=== PATIENT | male | born 1945 | race Caucasian/White ===

== ENCOUNTER 2016-10-28 19:21 | Emergency (ER) | payer MEDICARE ==
[2016-10-28] MEDS ORDERED: SODIUM CHLORIDE 0.9% 1,000 ML IV STA (20:06)
[2016-10-28] MEDS ORDERED: RX INFO: IV CONTRAST WAS GIVEN 1 EACH MISC MISCELLANE PRN (20:21)
--- NOTE | 2016-10-28 20:33 | ED ---
Abdominal Pain HPI - General Chief Complaint: Abdominal Pain Stated Complaint: Abd Pain Time Seen by Provider: 10/28/16 20:06 Source: patient, RN notes reviewed Mode of arrival: ambulatory Limitations: no limitations - History of Present Illness Initial Comments: 70-year-old male presents emergency Department with chief complaint abdominal pain. Patient states this started last night with some heartburn type symptoms but states that moved into his lower to mid abdomen. He states his just pain at this time. Patient also states she's had some diarrhea which is been slightly loose and watery. Denies any melena or hematochezia. Denies any mucus. Patient has no history of abdominal issues including gastric intestinal disease. Patient has had no abdominal surgeries. Patient denies chest pain, shortness breath, fever, chills. He states that eating seems to make things worse at this time. Patient denies any sick contacts. - Related Data Allergies Allergy/AdvReac Type Severity Reaction Status Date / Time No Known Allergies Allergy Verified 10/28/16 20:04 Review of Systems ROS Statement: Those systems with pertinent positive or pertinent negative responses have been documented in the HPI. ROS Other: All systems not noted in ROS Statement are negative. Past Medical History Past Medical History: GERD/Reflux, Hyperlipidemia, Hypertension, Myocardial Infarction ([place]) History of Any Multi-Drug Resistant Organisms: None Reported Past Surgical History: Heart Catheterization With Stent Past Psychological History: No Psychological Hx Reported Smoking Status: Never smoker Past Alcohol Use History: Rare Past Drug Use History: None Reported General Exam Limitations: no limitations General appearance: alert, in no apparent distress Head exam: Present: atraumatic, normocephalic, normal inspection Eye exam: Present: normal appearance, PERRL, EOMI. Absent: scleral icterus, conjunctival injection, periorbital swelling Respiratory exam: Present: normal lung sounds bilaterally. Absent: respiratory distress, wheezes, rales, rhonchi, stridor Cardiovascular Exam: Present: regular rate, normal rhythm, normal heart sounds. Absent: systolic murmur, diastolic murmur, rubs, gallop, clicks GI/Abdominal exam: Present: soft, tenderness (Mild to moderate midabdominal, periumbilical tenderness), normal bowel sounds. Absent: distended, guarding, rebound, rigid Back exam: Absent: CVA tenderness (R), CVA tenderness (L) Neurological exam: Present: alert, oriented X3, CN II-XII intact Skin exam: Present: warm, dry, intact, normal color. Absent: rash Course Vital Signs 10/28/16 20:01 Temperature 99.3 F Pulse Rate 104 H Respiratory 18 Rate Blood Pressure 121/69 O2 Sat by Pulse 98 Oximetry Medical Decision Making - Medical Decision Making 70-year-old male present emergency department for abdominal discomfort, diarrhea. Patient's labwork all within normal limits. Patient CT does show findings compatible with enteritis. Patient will be discharged at this time with close follow-up return parameters were discussed. - Lab Data Result diagrams: 10/28/16 20:20 10/28/16 20:20 Lab Results 10/28/16 10/28/16 10/28/16 Range/Units 20:20 20:20 20:20 WBC 8.6 (3.8-10.6) k/uL RBC 5.01 (4.30-5.90) m/uL Hgb 15.3 (13.0-17.5) gm/dL Hct 44.8 (39.0-53.0) % MCV 89.5 (80.0-100.0) fL MCH 30.6 (25.0-35.0) pg MCHC 34.2 (31.0-37.0) g/dL RDW 13.8 (11.5-15.5) % Plt Count 270 (150-450) k/uL Neutrophils % 80 % Lymphocytes % 10 % Monocytes % 5 % Eosinophils % 3 % Basophils % 0 % Neutrophils # 6.9 (1.3-7.7) k/uL Lymphocytes # 0.9 L (1.0-4.8) k/uL Monocytes # 0.5 (0-1.0) k/uL Eosinophils # 0.3 (0-0.7) k/uL Basophils # 0.0 (0-0.2) k/uL Sodium 143 (137-145) mmol/L Potassium 3.9 (3.5-5.1) mmol/L Chloride 111 H (98-107) mmol/L Carbon Dioxide 22 (22-30) mmol/L Anion Gap 10 mmol/L BUN 23 H (9-20) mg/dL Creatinine 0.89 (0.66-1.25) mg/dL Est GFR (MDRD) Af Amer >60 (>60 ml/min/1.73 sqM) Est GFR (MDRD) Non-Af >60 (>60 ml/min/1.73 sqM) Glucose 133 H (74-99) mg/dL Plasma Lactic Acid Popeye 1.0 (0.7-2.0) mmol/L Calcium 9.4 (8.4-10.2) mg/dL Total Bilirubin 0.9 (0.2-1.3) mg/dL AST 26 (17-59) U/L ALT 42 (21-72) U/L Alkaline Phosphatase 123 (38-126) U/L Total Protein 7.0 (6.3-8.2) g/dL Albumin 4.2 (3.5-5.0) g/dL Amylase 90 (30-110) U/L Lipase 232 (23-300) U/L Disposition Clinical Impression: Enteritis Disposition: HOME SELF-CARE Condition: Stable Instructions: Enteritis (ED) Additional Instructions: Please return to the Emergency Department if symptoms worsen or any other concerns. Referrals: Oleg Jason MD [Primary Care Provider] - 1-2 days Time of Disposition: 21:17
[2016-10-28 20:38] LABS: Basophils % (A) 0 %; CH 30.2; Eosinophils # (A) 0.3 k/uL (0-0.7); Eosinophils % (A) 3 %; HCT 44.8 % (39.0-53.0); HDW 2.67; HGB 15.3 gm/dL (13.0-17.5); Luc # (Auto) 0.15; Luc % (Auto) 2; Lymphocytes # (A) 0.9 k/uL (1.0-4.8); Lymphocytes % (A) 10 %; MCH 30.6 pg (25.0-35.0); MCHC 34.2 g/dL (31.0-37.0); MCV 89.5 fL (80.0-100.0); Mean Platelet Volume 7.3; Monocytes # (A) 0.5 k/uL (0-1.0); Monocytes % (A) 5 %; Neutrophils # (A) 6.9 k/uL (1.3-7.7); Neutrophils % (A) 80 %; RBC 5.01 m/uL (4.30-5.90); RDW 13.8 % (11.5-15.5); WBC 8.6 k/uL (3.8-10.6); WBC (Perox) 8.39
[2016-10-28 20:46] LABS: ALT 42 U/L (21-72); AST 26 U/L (17-59); Alkaline Phosphatase 123 U/L (38-126); Amylase 90 U/L (30-110); Anion Gap 10 mmol/L; Blood Urea Nitrogen 23 mg/dL (9-20); Calcium 9.4 mg/dL (8.4-10.2); Carbon Dioxide 22 mmol/L (22-30); Chloride 111 mmol/L (98-107); Glucose 133 mg/dL (74-99); Non-African American GFR(MDRD) >60 (>60 ml/min/1.73 sqM); Potassium 3.9 mmol/L (3.5-5.1); Sodium 143 mmol/L (137-145); Total Bilirubin 0.9 mg/dL (0.2-1.3)
--- NOTE | 2016-10-28 21:15 | CT ---
EXAMINATION TYPE: CT abdomen pelvis w con DATE OF EXAM: 10/28/2016 COMPARISON: NONE HISTORY: Pelvic pain and diarrhea since last night. CT DLP: 371.60 mGycm Automated exposure control for dose reduction was used. TECHNIQUE: Helical acquisition of images from the lung bases through the pelvis have been completed. CONTRAST: Performed without Oral Contrast and with IV Contrast, patient injected with 100 mL of Omnipaque 300. FINDINGS: LUNG BASES: No significant abnormality is appreciated. AORTA: Small limited dissection present axial image 34 infrarenal abdominal aorta, atheromatous dixon ges are present LIVER/GB: No significant abnormality is appreciated. PANCREAS: No significant abnormality is seen. SPLEEN: No significant abnormality is seen. ADRENALS: No significant abnormality is seen. KIDNEYS: No significant abnormality is seen. REPRODUCTIVE ORGANS: No significant abnormality is seen BOWEL: Fluid-filled loops of small bowel are present. No evident bowel obstruction. Hyperdense mater ial within the stomach and proximal small bowel likely related to radiodense medication. FREE AIR: No Free Air visible. ASCITES: None visible. PELVIC ADENOPATHY: None visualized. RETROPERITONEAL ADENOPATHY: No Retroperitoneal Adenopathy visible. URINARY BLADDER: No significant abnormality is seen. OSSEOUS STRUCTURES: Degenerative disc changes in the visualized spine. IMPRESSION: FINDINGS COMPATIBLE WITH ENTERITIS.
[2016-10-28 21:25] VITALS: BP 129/76; PULSE 94; RESP 16; TEMP 98.1
== END 2016-10-28 21:34 | disposition home or self-care (01) ==
LOC: EC 19:21
DX: K52.9 Noninfective gastroenteritis and colitis, unspecified (principal); K21.9 Gastro-esophageal reflux disease without esophagitis
CPT/HCPCS: 36415; 80053; 82150; 83605; 83690; 85025; 74177; 99284; 96360; Q9967

== ENCOUNTER → 2016-12-11 | Outpatient (CLI) | payer MEDICARE ==
[2016-12-11 13:44] LABS: Basophils % (A) 1 %; CH 29.9; CHCM 33.4; Eosinophils # (A) 0.1 k/uL (0-0.7); Eosinophils % (A) 1 %; HCT 39.5 % (39.0-53.0); HDW 2.58; HGB 13.3 gm/dL (13.0-17.5); Luc # (Auto) 0.13; Luc % (Auto) 3; Lymphocytes # (A) 1.1 k/uL (1.0-4.8); Lymphocytes % (A) 23 %; MCH 30.3 pg (25.0-35.0); MCHC 33.7 g/dL (31.0-37.0); MCV 89.9 fL (80.0-100.0); Mean Platelet Volume 7.3; Monocytes # (A) 0.3 k/uL (0-1.0); Monocytes % (A) 5 %; Neutrophils # (A) 3.3 k/uL (1.3-7.7); Neutrophils % (A) 67 %; RBC 4.39 m/uL (4.30-5.90); RDW 13.5 % (11.5-15.5); WBC 4.9 k/uL (3.8-10.6); WBC (Perox) 4.96
[2016-12-11 14:02] LABS: ALT 46 U/L (21-72); AST 30 U/L (17-59); Alkaline Phosphatase 103 U/L (38-126); Blood Urea Nitrogen 15 mg/dL (9-20); Calcium 9.1 mg/dL (8.4-10.2); Carbon Dioxide 25 mmol/L (22-30); Non-African American GFR(MDRD) >60 (>60 ml/min/1.73 sqM); Total Bilirubin 0.6 mg/dL (0.2-1.3)
[2016-12-11 14:30] LABS: Anion Gap 12 mmol/L; Chloride 107 mmol/L (98-107); Glucose 97 mg/dL (74-99); Potassium 3.8 mmol/L (3.5-5.1); Sodium 144 mmol/L (137-145); Total Protein 6.1 g/dL (6.3-8.2)
--- NOTE | 2016-12-11 14:32 | XR ---
EXAMINATION TYPE: XR chest 2V DATE OF EXAM: 12/11/2016 COMPARISON: NONE HISTORY: Hypertension, history of myocardial infarction TECHNIQUE: Frontal and lateral views of the chest are obtained. FINDINGS: Lung volumes are prominent suggesting underlying COPD. Patient is rotated. Heart is small. Pulmonary vascularity and clara within normal limits. No pneumonia, pneumothorax, or pleural effusion . IMPRESSION: No acute cardiopulmonary process.
== END | disposition home or self-care (01) ==
LOC: LABWHC1 13:09
PROVIDERS: ATTEND Internal Medicine
DX: I10 Essential (primary) hypertension (principal); R63.4 Abnormal weight loss
CPT/HCPCS: 36415; 71020; 80053; 85025

== ENCOUNTER → 2016-12-25 | Outpatient (CLI) | payer MEDICARE ==
--- NOTE | 2016-12-25 11:43 | FL ---
EXAMINATION TYPE: FL UGI air w esoph w sm bowel DATE OF EXAM: 12/25/2016 CLINICAL HISTORY: Weight loss and GERD per order. Epigastric pain and diarrhea over last few months p er patient. TECHNIQUE: A double contrast UGI study is performed with small bowel follow through. A total of 1 mi nute 26 seconds of fluoroscopic time was utilized during procedure. COMPARISON: CT abdomen and pelvis October 28, 2016. FINDINGS: Winch Driver image of the abdomen shows no gross abnormality. There is overall nonobstructive bow el gas pattern. The esophagus shows normal motility and emptying into the stomach. No evidence of hiatal hernia or s tricture noted. The stomach shows normal distensibility, peristalsis, and mucosal folds. No evidence of any mass or ulcer disease. Occasional episode of esophageal reflux was seen during real time performance of this study. The duodenal bulb and sweep are unremarkable. The small bowel study shows normal transit to the colon in less than 120 minutes. There is normal mu cosal fold pattern throughout the small bowel. There is no evidence of any stricture or filling defe ct noted. The terminal ileum was difficult to spot due to overlying contrast-filled bowel. IMPRESSION: Occasional gastroesophageal reflux otherwise no significant finding is seen to account fo r patient's symptoms
== END | disposition home or self-care (01) ==
LOC: RADFLMAIN 08:22
PROVIDERS: ATTEND Internal Medicine
DX: K21.9 Gastro-esophageal reflux disease without esophagitis (principal); R63.4 Abnormal weight loss
CPT/HCPCS: 74249

== ENCOUNTER 2019-08-03 21:32 | Inpatient (IN) | payer MEDICARE ==
[2019-08-03] MEDS ORDERED: SODIUM CHLORIDE 0.9% 500 ML 500 ML IV STA (21:38)
--- NOTE | 2019-08-03 21:42 | ED ---
General Adult HPI - General Chief complaint: Chest Pain Stated complaint: Abd pain Time Seen by Provider: 08/03/19 21:38 Source: patient Mode of arrival: ambulatory Limitations: no limitations - History of Present Illness Initial comments: Kye is a 73-year-old gentleman presents the emergency department today for evaluation of severe epigastric abdominal pain. Patient reports that pain began earlier in the day, progressively worsened, he tried some bgbh-clb-hnbgyxk upset stomach relief with no improvement. Pain is located in the epigastrium radiates to the back. There is no associated chest pain palpitations or shortness of breath though he does report taking deep breaths movement or palpation of the abdomen worsens the pain. He's been no relieving factors to the pain. He is never expressed pain like this in the past. He has no history of gallbladder pathology or pancreatitis that he is aware of. No recent fevers chills or vomiting. He did have some nausea associated with the pain but no vomiting. No change in bowel or bladder habits. Patient denies any alcohol use recently, he did have communion when this morning but no other significant alcohol intake. He denies any new medications. Denies any abdominal trauma. - Related Data Previous Rx's Medication Instructions Recorded Dicyclomine [Bentyl] 20 mg PO TID #30 tablet 10/28/16 Allergies Allergy/AdvReac Type Severity Reaction Status Date / Time No Known Allergies Allergy Verified 08/03/19 21:38 Review of Systems ROS Statement: Those systems with pertinent positive or pertinent negative responses have been documented in the HPI. ROS Other: All systems not noted in ROS Statement are negative. Past Medical History Past Medical History: GERD/Reflux, Hyperlipidemia, Hypertension, Myocardial Infarction ([place]) History of Any Multi-Drug Resistant Organisms: None Reported Past Surgical History: Heart Catheterization With Stent Past Psychological History: No Psychological Hx Reported Smoking Status: Never smoker Past Alcohol Use History: Rare Past Drug Use History: None Reported General Exam - General Exam Comments Initial Comments: Physical Exam GENERAL: Patient is well-developed and well-nourished. Patient is nontoxic and well- hydrated and is in no distress. HENT: Normocephalic, Atraumatic. EYES: PERRL, EOMI PULMONARY: Unlabored respirations. No audible rales rhonchi or wheezing was noted. CARDIOVASCULAR: There is a regular rate and rhythm without any murmurs gallops or rubs. ABDOMEN: Tenderness to palpation in the epigastrium SKIN: Skin is clear with no lesions or rashes and otherwise unremarkable. : Deferred NEUROLOGIC: Patient is alert and oriented x3. Moving all extremities spontaneously MUSCULOSKELETAL: Normal extremities with adequate strength and full range of motion. No lower extremity swelling or edema. No calf tenderness. PSYCHIATRIC: Normal psychiatric evaluation. Limitations: no limitations Course Vital Signs 08/03/19 08/03/19 08/03/19 21:34 21:49 22:00 Temperature 98.1 F Pulse Rate 69 97 98 Respiratory 16 14 14 Rate Blood Pressure 157/71 149/83 O2 Sat by Pulse 99 100 99 Oximetry 08/04/19 00:31 Temperature 98.1 F Pulse Rate 89 Respiratory 20 Rate Blood Pressure 129/66 O2 Sat by Pulse 97 Oximetry EKG Findings - EKG Comments: EKG Findings:: EKG was obtained due to patient's age and cardiac history, EKG was obtained at 2145, rate is 90 rhythm is sinus with PACs, normal axis, normal intervals, OK 164, cures 80, QTc is [address] elevations or depressions or evidence of ischemia or infarction. Medical Decision Making - Medical Decision Making Patient was seen and evaluated history is obtained from patient History and physical exam concerning for epigastric abdominal pain elderly gentleman cardiac history Labs and imaging consistent with acute pancreatitis Imaging with no acute findings on CT Results were discussed with admitting physician Dr. Pearce agrees with plan for admission for IV fluid resuscitation pain management She had only minimal improvement in his pain with morphine, Dilaudid was ordered for analgesia for the patient to tolerate and liver ultrasound Patient's pain improved significantly after Dilaudid Patient was admitted to the floor in stable condition - Lab Data Result diagrams: 08/03/19 21:48 08/03/19 21:48 Lab Results 08/03/19 08/03/19 08/03/19 Range/Units 21:48 21:48 21:48 WBC 10.4 (3.8-10.6) k/uL RBC 4.82 (4.30-5.90) m/uL Hgb 14.4 (13.0-17.5) gm/dL Hct 43.3 (39.0-53.0) % MCV 89.8 (80.0-100.0) fL MCH 29.8 (25.0-35.0) pg MCHC 33.2 (31.0-37.0) g/dL RDW 13.6 (11.5-15.5) % Plt Count 189 (150-450) k/uL Neutrophils % 79 % Lymphocytes % 13 % Monocytes % 4 % Eosinophils % 1 % Basophils % 0 % Neutrophils # 8.3 H (1.3-7.7) k/uL Lymphocytes # 1.4 (1.0-4.8) k/uL Monocytes # 0.5 (0-1.0) k/uL Eosinophils # 0.2 (0-0.7) k/uL Basophils # 0.0 (0-0.2) k/uL PT 10.0 (9.0-12.0) sec INR 1.0 (<1.2) APTT 23.3 (22.0-30.0) sec Sodium 142 (137-145) mmol/L Potassium 3.7 (3.5-5.1) mmol/L Chloride 108 H (98-107) mmol/L Carbon Dioxide 25 (22-30) mmol/L Anion Gap 9 mmol/L BUN 21 H (9-20) mg/dL Creatinine 0.94 (0.66-1.25) mg/dL Est GFR (CKD-EPI)AfAm >90 (>60 ml/min/1.73 sqM) Est GFR (CKD-EPI)NonAf 81 (>60 ml/min/1.73 sqM) Glucose 151 H (74-99) mg/dL Calcium 9.2 (8.4-10.2) mg/dL Magnesium 2.3 (1.6-2.3) mg/dL Total Bilirubin 0.4 (0.2-1.3) mg/dL AST 41 (17-59) U/L ALT 38 (4-49) U/L Alkaline Phosphatase 110 (38-126) U/L Troponin I (0.000-0.034) ng/mL NT-Pro-B Natriuret Pep pg/mL Total Protein 7.3 (6.3-8.2) g/dL Albumin 4.5 (3.5-5.0) g/dL Amylase 4734 H* (30-110) U/L Lipase >49797 H (23-300) U/L Urine Color Urine Appearance (Clear) Urine pH (5.0-8.0) Ur Specific [place] (1.001-1.035) Urine Protein (Negative) Urine Glucose (UA) (Negative) Urine Ketones (Negative) Urine Blood (Negative) Urine Nitrite (Negative) Urine Bilirubin (Negative) Urine Urobilinogen (<2.0) mg/dL Ur Leukocyte Esterase (Negative) 08/03/19 08/03/19 08/03/19 Range/Units 21:48 21:48 22:20 WBC (3.8-10.6) k/uL RBC (4.30-5.90) m/uL Hgb (13.0-17.5) gm/dL Hct (39.0-53.0) % MCV (80.0-100.0) fL MCH (25.0-35.0) pg MCHC (31.0-37.0) g/dL RDW (11.5-15.5) % Plt Count (150-450) k/uL Neutrophils % % Lymphocytes % % Monocytes % % Eosinophils % % Basophils % % Neutrophils # (1.3-7.7) k/uL Lymphocytes # (1.0-4.8) k/uL Monocytes # (0-1.0) k/uL Eosinophils # (0-0.7) k/uL Basophils # (0-0.2) k/uL PT (9.0-12.0) sec INR (<1.2) APTT (22.0-30.0) sec Sodium (137-145) mmol/L Potassium (3.5-5.1) mmol/L Chloride (98-107) mmol/L Carbon Dioxide (22-30) mmol/L Anion Gap mmol/L BUN (9-20) mg/dL Creatinine (0.66-1.25) mg/dL Est GFR (CKD-EPI)AfAm (>60 ml/min/1.73 sqM) Est GFR (CKD-EPI)NonAf (>60 ml/min/1.73 sqM) Glucose (74-99) mg/dL Calcium (8.4-10.2) mg/dL Magnesium (1.6-2.3) mg/dL Total Bilirubin (0.2-1.3) mg/dL AST (17-59) U/L ALT (4-49) U/L Alkaline Phosphatase (38-126) U/L Troponin I <0.012 (0.000-0.034) ng/mL NT-Pro-B Natriuret Pep 290 pg/mL Total Protein (6.3-8.2) g/dL Albumin (3.5-5.0) g/dL Amylase (30-110) U/L Lipase (23-300) U/L Urine Color Light Yellow Urine Appearance Clear (Clear) Urine pH 7.5 (5.0-8.0) Ur Specific [place] 1.019 (1.001-1.035) Urine Protein Trace H (Negative) Urine Glucose (UA) Negative (Negative) Urine Ketones Negative (Negative) Urine Blood Negative (Negative) Urine Nitrite Negative (Negative) Urine Bilirubin Negative (Negative) Urine Urobilinogen 2.0 (<2.0) mg/dL Ur Leukocyte Esterase Negative (Negative) Disposition Clinical Impression: Acute pancreatitis Disposition: ADMITTED IP TO THIS [facility] Condition: Serious Is patient prescribed a controlled substance at d/c from ED?: No
[2019-08-03 21:57] LABS: Basophils % (A) 0 %; Eosinophils # (A) 0.2 k/uL (0-0.7); Eosinophils % (A) 1 %; HCT 43.3 % (39.0-53.0); HGB 14.4 gm/dL (13.0-17.5); Lymphocytes # (A) 1.4 k/uL (1.0-4.8); Lymphocytes % (A) 13 %; MCH 29.8 pg (25.0-35.0); MCHC 33.2 g/dL (31.0-37.0); MCV 89.8 fL (80.0-100.0); Mean Platelet Volume 8.1; Monocytes # (A) 0.5 k/uL (0-1.0); Monocytes % (A) 4 %; Neutrophils # (A) 8.3 k/uL (1.3-7.7); Neutrophils % (A) 79 %; Platelet Count 189 k/uL (150-450); RBC 4.82 m/uL (4.30-5.90); RDW 13.6 % (11.5-15.5); WBC 10.4 k/uL (3.8-10.6)
[2019-08-03 22:06] LABS: Partial Thromboplastin Time 23.3 sec (22.0-30.0)
[2019-08-03 22:09] LABS: ALT 38 U/L (4-49); AST 41 U/L (17-59); African American GFR (CKD) >90 (>60 ml/min/1.73 sqM); Albumin 4.5 g/dL (3.5-5.0); Alkaline Phosphatase 110 U/L (38-126); Anion Gap 9 mmol/L; Blood Urea Nitrogen 21 mg/dL (9-20); Calcium 9.2 mg/dL (8.4-10.2); Carbon Dioxide 25 mmol/L (22-30); Chloride 108 mmol/L (98-107); Glucose 151 mg/dL (74-99); Magnesium 2.3 mg/dL (1.6-2.3); Non-African American GFR(CKD) 81 (>60 ml/min/1.73 sqM); Potassium 3.7 mmol/L (3.5-5.1); Sodium 142 mmol/L (137-145); Total Bilirubin 0.4 mg/dL (0.2-1.3); Total Protein 7.3 g/dL (6.3-8.2)
[2019-08-03] MEDS ORDERED: MORPHINE SULFATE 4 MG/ML SYRINGE IVP STA (22:09)
[2019-08-03] MEDS ORDERED: ONDANSETRON 4 MG/2 ML VIAL IVP STA (22:09)
--- NOTE | 2019-08-03 22:09 | XR ---
EXAMINATION TYPE: XR chest 2V DATE OF EXAM: 08/03/2019 COMPARISON: 12/11/2016 HISTORY: Hypertension TECHNIQUE: FINDINGS: Heart is normal. Lungs are clear. Costophrenic angles are clear. Bony thorax is intact. The re are chest leads. IMPRESSION: No active cardiopulmonary disease. Normal heart. No change.
[2019-08-03 22:27] LABS: Appearance,Urine Clear (Clear); Bilirubin,Urine Negative (Negative); Blood,Urine Negative (Negative); Color,Urine Light Yellow; Glucose,Urine (UA) Negative (Negative); Ketones,Urine Negative (Negative); Leukocyte Esterase,Urine Negative (Negative); Nitrite,Urine Negative (Negative); PH, Urine 7.5 (5.0-8.0); Protein,Urine Trace (Negative); Specific Gravity,Urine 1.019 (1.001-1.035)
[2019-08-03 22:50] LABS: Amylase 4734 U/L (30-110)
--- NOTE | 2019-08-03 23:36 | CT ---
EXAMINATION TYPE: CT abdomen pelvis w con DATE OF EXAM: 08/03/2019 COMPARISON: 10/28/2016 HISTORY: Epigastric pain CT DLP: 682.40 mGycm Automated exposure control for dose reduction was used. CONTRAST: Performed with IV Contrast, patient injected with 100 mL of Isovue 300. Multiple axial sections were obtained from the diaphragm to the floor the pelvis with intravenous con trast Isovue 300 mL. Lung bases are clear of consolidation. There is mild subsegmental atelectasis at the lung bases. Hear t size is normal. There is no pericardial effusion. Liver spleen stomach pancreas gallbladder appear normal. The bile ducts are not dilated. There is no adrenal mass. Kidneys show satisfactory contrast opacification. There is no hydronephrosis. Ureters are not dilated. I see no sign of thickened append ix. Small bowel appears normal. Bladder distends smoothly. There is no inguinal hernia. There is no f ree fluid in the pelvis. There is no mesenteric edema. There is no ascites or free air. There is no bowel obstruction. Lumbar spine is intact. There is degenerative disc space narrowing. There is no compression fracture. IMPRESSION: No sign of acute abdomen and pelvis. There is clearing of the distended loops of small bowel compared to last exam. Appendix not seen. No sign of thickened appendix.
[2019-08-04] MEDS ORDERED: ONDANSETRON 4 MG/2 ML VIAL IVP PRN (00:05)
[2019-08-04] MEDS ORDERED: MORPHINE SULFATE 4 MG/ML SYRINGE IVP PRN ×2 (00:05→01:23)
[2019-08-04] MEDS ORDERED: NALOXONE 0.4 MG/ML 1 ML VIAL IV PRN (00:09)
[2019-08-04] MEDS ORDERED: SODIUM CHLORIDE 0.9% 1,000 ML IV SCH (00:15)
[2019-08-04] MEDS ORDERED: HYDROmorphone 1 MG/ML 1 ML SYRINGE IVP STA (00:16)
[2019-08-04] MEDS: LACTATED RINGERS 1,000 ML IV ONE ×2 (00:26→21:58)
[2019-08-04] MEDS: HEPARIN SODIUM,PORCINE 5,000 UNIT/ML 1 ML VIAL SQ SCH ×4 (00:28→23:35)
[2019-08-04] MEDS: LACTATED RINGERS 1,000 ML IV SCH ×8 (00:56→22:32)
--- NOTE | 2019-08-04 00:58 | US ---
EXAMINATION TYPE: US liver DATE OF EXAM: 08/04/2019 COMPARISON: CT CLINICAL HISTORY: acute pancreatitis. EXAM MEASUREMENTS: Liver Length: 14.6 cm Gallbladder Wall: 0.3 cm CBD: 0.3 cm Right Kidney: 9.0 x 3.8 x 5.0 cm Extensive overlying bowel gas. Technically difficult study. Pancreas: Obscured by bowel gas Liver: wnl Gallbladder: wnl, limited visualization due to overlying bowel gas Evidence for sonographic Ann's sign: no CBD: limited views, appears wnl Right Kidney: No hydronephrosis or masses seen, inferior pole somewhat obscured by overlying bowel g as IMPRESSION: Pancreas not seen due to bowel gas. No dilated ducts. No free fluid. No focal liver defec t.
--- NOTE | 2019-08-04 01:23 | P.HPIM ---
History of Present Illness H&P Date: 08/04/19 Chief Complaint: Epigastric abdominal pain 73-year-old male with hypertension, hyperlipidemia Patient comes in due to epigastric abdominal pain sudden onset severe radiating to the back rated as 10 out of 10 in severity sharp pain associated with nausea no vomiting worse with movement and deep breathing. Patient never experienced anything like this denies any history of pancreatitis denies any recent traveling denies any symptoms suggestive of gastroenteritis. Denies any history of ulcers. Patient denies any changes in his medications. Denies any unsanitary food or drink. He denies any heavy alcohol intake, however this morning he had glass of wine at [facility] during communion. Since then his symptoms has started. Patient tried some kpxx-lev-fkfiqmn meds with no much relief. Patient denies any GI bleeding Upon evaluation in the ED, he was found to have acute pancreatitis. CT of the abdomen showed no acute process Review of Systems Pertinent positives as noted in HPI. All other systems were reviewed and are negative Past Medical History Past Medical History: GERD/Reflux, Hyperlipidemia, Hypertension, Myocardial Infarction ([place]) History of Any Multi-Drug Resistant Organisms: None Reported Past Surgical History: Heart Catheterization With Stent Past Psychological History: No Psychological Hx Reported Smoking Status: Never smoker Past Alcohol Use History: Rare Past Drug Use History: None Reported Medications and Allergies Home Medications Medication Instructions Recorded Confirmed Type Dicyclomine [Bentyl] 20 mg PO TID #30 tablet 10/28/16 Rx Allergies Allergy/AdvReac Type Severity Reaction Status Date / Time No Known Allergies Allergy Verified 08/03/19 21:38 Physical Exam Vitals: Vital Signs Temp Pulse Resp BP Pulse Ox 08/04/19 00:31 98.1 F 89 20 129/66 97 08/03/19 22:00 98 14 149/83 99 08/03/19 21:49 97 14 100 08/03/19 21:34 98.1 F 69 16 157/71 99 Intake and Output 08/03/19 08/03/19 08/04/19 14:59 22:59 06:59 Other: Weight 63.503 kg Constitutional: No acute distress, conversant, pleasant Eyes: Anicteric sclerae, moist conjunctiva, no lid-lag Pupils equal round reactive to light ENMT: NC/AT Oropharynx clear, no erythema, exudates Neck: Supple, FROM, no masses, or JVD No carotid bruits No thyromegaly Lungs: Clear to auscultation Clear to percussion Normal respiratory effort, no accessory muscle use Cardiovascular: Heart regular in rate and rhythm, No murmurs, gallops, or rubs No peripheral edema Abdominal: Soft diffuse tenderness to deep palpation , no guarding, rebound or rigidity Abdomen moving with respiration Normoactive bowel sounds No hepatomegaly, No splenomegaly No palpable mass No abdominal wall hernia noted Skin: Normal temperature, tone, texture, turgor No induration No subcutaneous nodules No rash, lesions No ulcers Extremities: No digital cyanosis No clubbing Pedal pulses intact and symmetrical Radial pulses intact and symmetrical No calf tenderness Psychiatric: Alert and oriented to person, place and time Appropriate affect fair judgement Neuro Muscles Strength 5/5 in all 4 extremities Sensation to light touch grossly present throughout Cranial nerves II-XII grossly intact No focal sensory deficits Lymphatics: no palpable cervical or supraclavicular , or inguinal lymph nodes Results CBC & Chem 7: 08/03/19 21:48 08/03/19 21:48 Labs: Abnormal Lab Results - Last 24 Hours (Table) 08/03/19 08/03/19 08/03/19 Range/Units 21:48 21:48 22:20 Neutrophils # 8.3 H (1.3-7.7) k/uL Chloride 108 H (98-107) mmol/L BUN 21 H (9-20) mg/dL Glucose 151 H (74-99) mg/dL Amylase 4734 H* (30-110) U/L Lipase >36640 H (23-300) U/L Urine Protein Trace H (Negative) Assessment and Plan Assessment: 73 year old male with hypertension , hyperlipidemia, CAD , admitted for acute pancreatitis, unknown unnderlying cause, as inpatient with anticipated length of stay > 2 midnights Plan: acute pancreatitis pain control aggressive IVF hydration CT abd no acute process LIver US check TG level check IgG 4 symptomatic support follow up cmp and CBC DVT PPX heparin sc tid chronic conditions hypertension hyperlipidemia CAD CODE STATUS:full code Discussed with: Patient, ER Anticipated length of stay > than [address]: home A total of 60 minutes was spent on the care of this complex patient more than 50% of the time was spent in counseling and care coordination.
[2019-08-04 10:35] LABS: Basophils % (A) 0 %; Eosinophils # (A) 0.1 k/uL (0-0.7); Eosinophils % (A) 1 %; HCT 39.6 % (39.0-53.0); HGB 12.9 gm/dL (13.0-17.5); Lymphocytes # (A) 0.9 k/uL (1.0-4.8); Lymphocytes % (A) 14 %; MCH 29.3 pg (25.0-35.0); MCHC 32.6 g/dL (31.0-37.0); Mean Platelet Volume 8.3; Monocytes # (A) 0.3 k/uL (0-1.0); Monocytes % (A) 4 %; Neutrophils # (A) 5.2 k/uL (1.3-7.7); Neutrophils % (A) 80 %; Platelet Count 160 k/uL (150-450); RDW 13.6 % (11.5-15.5); WBC 6.5 k/uL (3.8-10.6)
[2019-08-04 10:44] LABS: ALT 28 U/L (4-49); AST 29 U/L (17-59); African American GFR (CKD) >90 (>60 ml/min/1.73 sqM); Albumin 3.4 g/dL (3.5-5.0); Alkaline Phosphatase 85 U/L (38-126); Anion Gap 6 mmol/L; Blood Urea Nitrogen 15 mg/dL (9-20); Carbon Dioxide 24 mmol/L (22-30); Chloride 108 mmol/L (98-107); Glucose 107 mg/dL (74-99); Non-African American GFR(CKD) >90 (>60 ml/min/1.73 sqM); Sodium 138 mmol/L (137-145); Total Bilirubin 0.5 mg/dL (0.2-1.3); Total Protein 5.9 g/dL (6.3-8.2)
[2019-08-04 11:29] LABS: IgG Subclass 4 47.9 mg/dL (3.0-175.0)
--- NOTE | 2019-08-04 12:39 | P.PN ---
Progress Note - Text Progress Note Date: 08/04/19 Patient here for pancreatitis of unknown etiology. Lipase has been trending down. Patient reports improvement in current symptoms. Triglycerides slightly elevated at 179. CT abdomen and pelvis unremarkable. Liver ultrasound shows no dilated ducts. We'll continue normal saline at 150 mL/h. Zofran for nausea or vomiting. Pain control with morphine every 2 hours as needed. Start clear liquid diet and advance. He is pending clinical improvement. Likely DC in 2-3 days.
[2019-08-04] MEDS: TOPIRAMATE 25 MG TAB PO SCH (20:29)
[2019-08-04] MEDS: METOPROLOL TARTRATE 25 MG TAB PO SCH (20:29)
[2019-08-04] MEDS: ATORVASTATIN 20 MG TAB PO SCH (20:29)
[2019-08-04] MEDS: FAMOTIDINE 20 MG TAB PO SCH (20:29)
[2019-08-05] MEDS: LACTATED RINGERS 1,000 ML IV SCH ×3 (05:51→22:51)
[2019-08-05 08:08] LABS: Basophils % (A) 0 %; Eosinophils # (A) 0.1 k/uL (0-0.7); Eosinophils % (A) 1 %; HCT 40.7 % (39.0-53.0); HGB 13.2 gm/dL (13.0-17.5); Lymphocytes # (A) 1.1 k/uL (1.0-4.8); Lymphocytes % (A) 20 %; MCH 29.2 pg (25.0-35.0); MCHC 32.5 g/dL (31.0-37.0); MCV 89.8 fL (80.0-100.0); Mean Platelet Volume 8.9; Monocytes # (A) 0.2 k/uL (0-1.0); Monocytes % (A) 4 %; Neutrophils % (A) 72 %; Platelet Count 177 k/uL (150-450); RBC 4.54 m/uL (4.30-5.90); RDW 13.4 % (11.5-15.5); WBC 5.6 k/uL (3.8-10.6)
[2019-08-05] MEDS: ASPIRIN 81 MG PO SCH (08:15)
[2019-08-05] MEDS: CLOPIDOGREL 75 MG TAB PO SCH (08:15)
[2019-08-05] MEDS: HEPARIN SODIUM,PORCINE 5,000 UNIT/ML 1 ML VIAL SQ SCH ×3 (08:15→22:58)
[2019-08-05] MEDS: METOPROLOL TARTRATE 25 MG TAB PO SCH ×2 (08:15→22:54)
[2019-08-05 08:24] LABS: African American GFR (CKD) >90 (>60 ml/min/1.73 sqM); Anion Gap 8 mmol/L; Blood Urea Nitrogen 13 mg/dL (9-20); Calcium 8.9 mg/dL (8.4-10.2); Carbon Dioxide 23 mmol/L (22-30); Chloride 109 mmol/L (98-107); Glucose 83 mg/dL (74-99); Non-African American GFR(CKD) 88 (>60 ml/min/1.73 sqM); Potassium 4.1 mmol/L (3.5-5.1); Sodium 140 mmol/L (137-145)
[2019-08-05 08:27] LABS: Amylase 412 U/L (30-110)
--- NOTE | 2019-08-05 12:02 | P.PN ---
Subjective Progress Note Date: 08/05/19 Principal diagnosis: Pancreatitis Patient was seen and examined. No acute events overnight. Patient able to tolerate clear liquid diet without any complications. He denies any nausea or vomiting. Pain is currently well controlled. He denies any chest pain, shortness of breath or palpitations. No fever or chills. Objective - Vital Signs Vital signs: Vital Signs Temp 97.5 F L 08/05/19 07:40 Pulse 74 08/05/19 07:40 Resp 17 08/05/19 07:40 BP 133/78 08/05/19 07:40 Pulse Ox 99 08/05/19 07:40 Intake & Output 08/04/19 08/05/19 08/05/19 18:59 06:59 18:59 Intake Total 500 Balance 500 Intake: Oral 500 Other: # Voids 3 1 - Exam General: [non toxic], [no distress], [appears at stated age] Derm: [warm], [dry] Head: [atraumatic], [normocephalic], [symmetric] Eyes: [EOMI], [no lid lag], [anicteric sclera] Mouth: [no lip lesion], [mucus membranes moist] Cardiovascular: [S1S2 reg], [no murmur], [positive posterior tibial pulse bilateral], Lungs: [CTA bilateral], [no rhonchi, no rales] , [no accessory muscle use] Abdominal: [soft], [mild epigastric tenderness without rebound], [no guarding], [no appreciable organomegaly] Ext: [no gross muscle atrophy], [no edema], [no contractures] Neuro: [no focal neuro deficits] Psych: [Alert], [oriented], [appropriate affect] - Labs CBC & Chem 7: 08/05/19 07:46 08/05/19 07:46 Labs: Abnormal Lab Results - Last 24 Hours (Table) 08/05/19 Range/Units 07:46 Chloride 109 H (98-107) mmol/L Amylase 412 H* (30-110) U/L Lipase 1224 H (23-300) U/L Assessment and Plan Assessment: Acute pancreatitis Hypertriglyceridemia GERD CAD Hypertension Patient's pancreatic enzymes have been trending down. His amylase was 4734 on admission, now 412. Lipase was greater than 20,000, now 1224. Immunoglobulin test has been negative. Triglycerides is mildly elevated at 179. CT abdomen and pelvis was negative. Liver ultrasound shows no dilated ducts. The etiology is currently unknown. He is currently on lactated Ringer's at 150 mL per hour. Pain is controlled with morphine as needed. He is given Zofran as needed for nausea or vomiting. His home medication of aspirin, Lipitor and Plavix has been resumed for history of CAD. Pepcid has been resumed for GERD. His blood pressure is currently within normal limits at 133/78 for which metoprolol has been restarted. Patient has been tolerating clear liquid diet and we plan to transition him to a low-fat diet today. Plans for discharge tomorrow if patient is able to tolerate his diet and pain is well-controlled.
[2019-08-05] MEDS: FAMOTIDINE 20 MG TAB PO SCH (22:54)
[2019-08-05] MEDS: ATORVASTATIN 20 MG TAB PO SCH (22:54)
[2019-08-05] MEDS: TOPIRAMATE 25 MG TAB PO SCH (22:55)
[2019-08-06 02:59] VITALS: TEMP 97.7
[2019-08-06] MEDS: LACTATED RINGERS 1,000 ML IV SCH ×2 (03:02→07:09)
[2019-08-06] MEDS: METOPROLOL TARTRATE 25 MG TAB PO SCH (07:09)
[2019-08-06] MEDS: ASPIRIN 81 MG PO SCH (07:09)
[2019-08-06] MEDS: HEPARIN SODIUM,PORCINE 5,000 UNIT/ML 1 ML VIAL SQ SCH (07:09)
[2019-08-06] MEDS: CLOPIDOGREL 75 MG TAB PO SCH (07:09)
[2019-08-06 07:47] LABS: HCT 40.2 % (39.0-53.0); MCHC 32.3 g/dL (31.0-37.0); MCV 89.9 fL (80.0-100.0); Mean Platelet Volume 8.4; Platelet Count 164 k/uL (150-450); RBC 4.47 m/uL (4.30-5.90); RDW 13.3 % (11.5-15.5)
[2019-08-06 07:49] LABS: ALT 24 U/L (4-49); AST 30 U/L (17-59); African American GFR (CKD) >90 (>60 ml/min/1.73 sqM); Albumin 3.3 g/dL (3.5-5.0); Alkaline Phosphatase 85 U/L (38-126); Amylase 120 U/L (30-110); Anion Gap 9 mmol/L; Blood Urea Nitrogen 15 mg/dL (9-20); Calcium 8.8 mg/dL (8.4-10.2); Carbon Dioxide 20 mmol/L (22-30); Chloride 111 mmol/L (98-107); Cholesterol 120 mg/dL (<200); Glucose 93 mg/dL (74-99); HDL Cholesterol 41 mg/dL (40-60); LDL Cholesterol,Calculated 65 mg/dL (0-99); Non-African American GFR(CKD) 87 (>60 ml/min/1.73 sqM); Potassium 3.9 mmol/L (3.5-5.1); Sodium 140 mmol/L (137-145); Total Bilirubin 0.6 mg/dL (0.2-1.3); Total Protein 5.9 g/dL (6.3-8.2); Triglycerides 72 mg/dL (<150)
[2019-08-06 07:51] VITALS: BP 120/68; PULSE 65; RESP 17
--- NOTE | 2019-08-06 10:45 | P.DS ---
Providers Date of admission: 08/04/19 00:09 Expected date of discharge: 08/06/19 Attending physician: Anya Reyes MD Primary care physician: [facility] Course: Patient is a 73-year-old male with PMH of hypertension and dyslipidemia that initially presented to the ED for epigastric discomfort radiating to the back along with nausea and vomiting. He denied any alcohol use. CT of the abdomen pelvis showed no acute process. Amylase was elevated at 4734. Lipase was greater than 20,000. Patient was admitted for acute pancreatitis. His pancreatic enzymes trended down to amylase 120 and lipase 423 on discharge. Patient was initially started on clear liquid diet in transition to low-fat diet. He was able to tolerate his diet well. Liver ultrasound did not show any dilated ducts. Immunoglobulin test was negative. He was started on lactated Ringer's at 150 mL/h. Pain was controlled with morphine. His home medications of aspirin, Lipitor and Plavix were resumed for history of CAD. Patient was seen and examined. No acute events overnight. Patient denies any abdominal pain. Tolerating low-fat diet well. He denies any nausea or vomiting. He denies any chest pain, shortness of breath or palpitations. General: [non toxic], [no distress], [appears at stated age] Derm: [warm], [dry] Head: [atraumatic], [normocephalic], [symmetric] Eyes: [EOMI], [no lid lag], [anicteric sclera] Mouth: [no lip lesion], [mucus membranes moist] Cardiovascular: [S1S2 reg], [no murmur], [positive posterior tibial pulse bilateral], Lungs: [CTA bilateral], [no rhonchi, no rales] , [no accessory muscle use] Abdominal: [soft], [nontender to palpation], [no guarding], [no appreciable organomegaly] Ext: [no gross muscle atrophy], [no edema], [no contractures] Neuro: [no focal neuro deficits] Psych: [Alert], [oriented], [appropriate affect] Acute pancreatitis Hypertriglyceridemia GERD CAD Hypertension Patient's pancreatic enzymes have been trending down. His amylase was 4734 on admission, now 120. Lipase was greater than 20,000, now for 23. Immunoglobulin test has been negative. Triglycerides is mildly elevated at 179. CT abdomen and pelvis was negative. Liver ultrasound shows no dilated ducts. The etiology is currently unknown. He is currently on lactated Ringer's at 150 mL per hour. Pain is controlled with morphine as needed which he has not been receiving. He is given Zofran as needed for nausea or vomiting. His home medication of aspirin, Lipitor and Plavix has been resumed for history of CAD. Pepcid has been resumed for GERD. His blood pressure is currently within normal limits at 120/68 for which metoprolol has been restarted. Patient has been tolerating low-fat diet well. Plans for discharge today with close follow-up with GI and PCP. This complex discharge took about 35 minutes to complete. Pertinent Studies: Liver ultrasound, CT abdomen and pelvis, chest x-ray Patient Condition at Discharge: Stable Plan - Discharge Summary Discharge Rx Participant: No New Discharge Prescriptions: New HYDROcodone/APAP 5-325MG [[place] 5-325] 1 tab PO Q4HR PRN 3 Days #18 tab PRN Reason: Pain Continue Topiramate [Topamax] 25 mg PO HS Metoprolol Tartrate [Lopressor] 25 mg PO BID Famotidine [Pepcid] 20 mg PO HS Clopidogrel [Plavix] 75 mg PO DAILY Atorvastatin [Lipitor] 20 mg PO HS Aspirin EC [Ecotrin Low Dose] 81 mg PO DAILY Discontinued Decongestant (Unknown Otc) 1 tab PO HS Discharge Medication List Aspirin EC [Ecotrin Low Dose] 81 mg PO DAILY 08/04/19 [History] Atorvastatin [Lipitor] 20 mg PO HS 08/04/19 [History] Clopidogrel [Plavix] 75 mg PO DAILY 08/04/19 [History] Famotidine [Pepcid] 20 mg PO HS 08/04/19 [History] Metoprolol Tartrate [Lopressor] 25 mg PO BID 08/04/19 [History] Topiramate [Topamax] 25 mg PO HS 08/04/19 [History] HYDROcodone/APAP 5-325MG [[place] 5-325] 1 tab PO Q4HR PRN 3 Days #18 tab 08/06/19 [Rx] Follow up Appointment(s)/Referral(s): Oleg Jason MD [Primary Care Provider] - 1-2 days Velocci,Rickie, MD [STAFF PHYSICIAN] - 1 Week Activity/Diet/Wound Care/Special Instructions: Diet: Low-fat Follow-up PCP within 3 days of discharge. Follow-up with GI within 1 week of discharge. Take all medications as advised. Discharge Disposition: HOME SELF-CARE
== END 2019-08-06 11:30 | disposition home or self-care (01) | DRG 440 ==
LOC: EC 21:32 → 4SSUR 08-04 00:09
PROVIDERS: ADMIT Internal Medicine; ATTEND Internal Medicine
DX: K85.90 Acute pancreatitis without necrosis or infection, unspecified (principal); E78.1 Pure hyperglyceridemia; E78.5 Hyperlipidemia, unspecified; I10 Essential (primary) hypertension; I25.10 Atherosclerotic heart disease of native coronary artery without angina pectoris; I25.2 Old myocardial infarction; K21.9 Gastro-esophageal reflux disease without esophagitis; Z79.899 Other long term (current) drug therapy; Z79.02 Long term (current) use of antithrombotics/antiplatelets; Z79.82 Long term (current) use of aspirin; Z95.5 Presence of coronary angioplasty implant and graft
CPT/HCPCS: 36415; 71046; 74177; 76705; 80048; 80053; 80061; 81003; 82150; 82787; 83690; 83735; 83880; 84478; 84484; 85025; 85027; 85610; 85730; 93005; 96361; 96372; 96374; 96375; 99285

== ENCOUNTER 2024-02-04 09:49 | Inpatient (IN) | payer MEDICARE ==
--- NOTE | 2024-02-04 10:42 | ED ---
Animal Bite HPI - General Chief Complaint: Animal Bite Stated Complaint: L hand cat bite Time Seen by Provider: 02/04/24 10:39 Source: patient, RN notes reviewed Mode of arrival: ambulatory Limitations: no limitations - History of Present Illness Initial Comments: 78-year-old male presenting with cat bite to left hand 2 days ago. States this was a family numbers cat was fully vaccinated. States he was playing with a cat when he bit him in 2 places on the back of his hand. He was seen by urgent care yesterday who placed him on Augmentin. He has taken 2 doses however reports increasing warmth, swelling, and pain to the dorsal aspect of hand. States he is having difficulty moving his wrist. He has been taking ibuprofen and Tylenol with little relief. Denies fever, chills, nausea, vomiting. - Related Data Home Medications Medication Instructions Recorded Confirmed Aspirin EC [Ecotrin Low Dose] 81 mg PO DAILY 08/04/19 08/04/19 Atorvastatin [Lipitor] 20 mg PO HS 08/04/19 08/04/19 Clopidogrel [Plavix] 75 mg PO DAILY 08/04/19 08/04/19 Famotidine [Pepcid] 20 mg PO HS 08/04/19 08/04/19 Metoprolol Tartrate [Lopressor] 25 mg PO BID 08/04/19 08/04/19 Topiramate [Topamax] 25 mg PO HS 08/04/19 08/04/19 Previous Rx's Medication Instructions Recorded HYDROcodone/APAP 5-325MG [[place] 1 tab PO Q4HR PRN 3 Days #18 tab 08/06/19 5-325] Allergies Allergy/AdvReac Type Severity Reaction Status Date / Time No Known Allergies Allergy Verified 02/04/24 10:04 Review of Systems ROS Statement: Those systems with pertinent positive or pertinent negative responses have been documented in the HPI. ROS Other: All systems not noted in ROS Statement are negative. 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, Last Myocardial Infarction Date:: 2012 History of Any Multi-Drug Resistant Organisms: None Reported Past Surgical History: Heart Catheterization With Stent Additional Past Surgical History / Comment(s): 1 stent Date of Last Stent Placement:: 2012 Past Psychological History: No Psychological Hx Reported Smoking Status: Never smoker Past Alcohol Use History: Occasional, Rare Past Drug Use History: None Reported - Past Family History Father Family Medical History: Diabetes Mellitus Additional Family Medical History / Comment(s): heart disease Mother Family Medical History: Dementia General Exam Limitations: no limitations General appearance: alert, in no apparent distress Left Elbow exam: Present: normal inspection, full ROM. Absent: tenderness, swelling Forearm Wrist exam: Present: normal inspection (Normal forearm) Hand Wrist exam: Present: tenderness, swelling, erythema. Absent: normal inspection (Dorsal aspect of left hand diffusely erythematous and edematous with tenderness to palpation extending to wrist. Four puncture wounds present on dorsal aspect of wrist. Full range of motion of all digits, sensation intact. Radial pulses intact.), full ROM (Limited flexion and extension of left wrist) Vascular: Present: normal capillary refill, radial pulse. Absent: vascular compromise Neurological exam: Present: alert, oriented X3 Psychiatric exam: Present: normal affect, normal mood Skin exam: Present: warm, dry, intact, normal color Course Vital Signs 02/04/24 02/04/24 09:59 13:11 Temperature 97.4 F L Pulse Rate 76 78 Respiratory 18 16 Rate Blood Pressure 136/72 146/90 O2 Sat by Pulse 100 99 Oximetry Medical Decision Making - Medical Decision Making Was pt. sent in by a medical professional or institution ([facility], [employer], urgent care, hospital, or prison...) When possible be specific @ -No Did you speak to anyone other than the patient for history (EMS, parent, family, police, friend...)? What history was obtained from this source @ -No Did you review nursing and triage notes (agree or disagree)? Why? @ -I reviewed and agree with nursing and triage notes Were old charts reviewed (outside hosp., previous admission, EMS record, old EKG, old radiological studies, urgent care reports/EKG's, prison records)? Report findings @ -No old charts were reviewed Differential Diagnosis (chest pain, altered mental status, abdominal pain women, abdominal pain men, vaginal bleeding, weakness, fever, dyspnea, syncope, headache, dizziness, GI bleed, back pain, seizure, CVA, palpatations, mental health, musculoskeletal)? @ -Differential Musculoskeletal Muscular strain, contusion, ligament sprain, fracture, arthritis, septic arthritis, bursitis, cellulitis, muscle spasm, nerve compression, DVT, arterial occlusion, herpes zoster, electrolyte abnormality, tumor.... This is not meant to be in all inclusive list EKG interpreted by me (3pts min.). @ -None X-rays interpreted by me (1pt min.). @ -Ray of left hand revealed no acute process CT interpreted by me (1pt min.). @ -None done U/S interpreted by me (1pt. min.). @ -None done What testing was considered but not performed or refused? (CT, X-rays, U/S, labs)? Why? @ -None What meds were considered but not given or refused? Why? @ -None Did you discuss the management of the patient with other professionals (professionals i.e. , PA, [employer], lab, RT, psych nurse, geriatric social worker, residential roofer, teacher, traffic division commanding officer, leather case finisher)? Give summary @ -I spoke with Dr. Das who accepts admission at this time for cellulitis of left hand status post cat bite, failed outpatient therapy. He requests consultation to orthopedic surgery at this time, recommends starting Unasyn Was smoking cessation discussed for >3mins.? @ -No Was critical care preformed (if so, how long)? @ -No Were there social determinants of health that impacted care today? How? (Homelessness, low income, unemployed, alcoholism, drug addiction, transportation, low edu. Level, literacy, decrease access to med. care, intermediate, rehab)? @ -No Was there de-escalation of care discussed even if they declined (Discuss DNR or withdrawal of care, Hospice)? DNR status @ -No What co-morbidities impacted this encounter? (DM, HTN, Smoking, COPD, CAD, Cancer, CVA, ARF, Chemo, Hep., AIDS, mental health diagnosis, sleep apnea, morbid obesity)? @ -None Was patient admitted / discharged? Hospital course, mention meds given and route, prescriptions, significant lab abnormalities, going to OR and other pertinent info. @ -Patient was admitted. Patient was seen and evaluated for cat bite to left hand 2 days ago. Patient placed on Augmentin yesterday at urgent care and tet anus was updated. Patient states symptoms are worsening. Vital signs are within normal limits, patient is afebrile and nontachycardic. Physical examination remarkable for diffuse erythema, edema, warmth, and tenderness extending from dorsal aspect of left hand into wrist. Limited range of motion of left wrist. Blood cultures taken. White blood cell count 11, CRP 5.6. X- ray negative for acute process. I spoke with Dr. Das who accepts admission at this time for cellulitis of left hand status post cat bite, failed outpatient therapy. Patient is agreeable to plan. Started on IV Unasyn. Case was discussed with my ED attending Dr. Kennedy. Undiagnosed new problem with uncertain prognosis? @ -No Drug Therapy requiring intensive monitoring for toxicity (Heparin, Nitro, Insulin, Cardizem)? @ -No Were any procedures done? @ -No Diagnosis/symptom? @ -Cellulitis of left hand, cat bite left hand Acute, or Chronic, or Acute on Chronic? @ -Acute Uncomplicated (without systemic symptoms) or Complicated (systemic symptoms)? @ -uncomplicated Side effects of treatment? @ -No Exacerbation, Progression, or Severe Exacerbation? @ -No Poses a threat to life or bodily function? How? (Chest pain, USA, MD, pneumonia, PE, COPD, DKA, ARF, appy, cholecystitis, CVA, Diverticulitis, Homicidal, Su[place] christie, threat to staff... and all critical care pts) @ -Possibly - Lab Data Result diagrams: 02/04/24 10:44 02/04/24 10:44 Lab Results 02/04/24 02/04/24 Range/Units 10:44 10:44 WBC 11.1 H (3.8-10.6) k/uL RBC 4.94 (4.30-5.90) m/uL Hgb 14.6 (13.0-17.5) gm/dL Hct 44.4 (39.0-53.0) % MCV 89.8 (80.0-100.0) fL MCH 29.7 (25.0-35.0) pg MCHC 33.0 (31.0-37.0) g/dL RDW 13.6 (11.5-15.5) % Plt Count 277 (150-450) k/uL MPV 8.3 Neutrophils % 86 % Lymphocytes % 8 % Monocytes % 4 % Eosinophils % 1 % Basophils % 0 % Neutrophils # 9.5 H (1.3-7.7) k/uL Lymphocytes # 0.9 L (1.0-4.8) k/uL Monocytes # 0.5 (0-1.0) k/uL Eosinophils # 0.1 (0-0.7) k/uL Basophils # 0.0 (0-0.2) k/uL Sodium 139 (137-145) mmol/L Potassium 4.3 (3.5-5.1) mmol/L Chloride 109 H (98-107) mmol/L Carbon Dioxide 20 L (22-30) mmol/L Anion Gap 10 mmol/L BUN 21 H (9-20) mg/dL Creatinine 0.96 (0.66-1.25) mg/dL Est GFR (CKD-EPI)AfAm 88 (>60 ml/min/1.73 sqM) Est GFR (CKD-EPI)NonAf 77 (>60 ml/min/1.73 sqM) Glucose 119 H (74-99) mg/dL Calcium 9.6 (8.4-10.2) mg/dL Total Bilirubin 1.4 H (0.2-1.3) mg/dL AST 41 (17-59) U/L ALT 47 (4-49) U/L Alkaline Phosphatase 108 (38-126) U/L C-Reactive Protein 5.6 H (<1.0) mg/dL Total Protein 7.5 (6.3-8.2) g/dL Albumin 4.5 (3.5-5.0) g/dL Disposition Clinical Impression: Cat bite of left hand, Cellulitis of left hand Disposition: ADMITTED IP TO THIS [facility] Condition: Stable Referrals: Paul Chisholm DO [Primary Care Provider] - 1-2 days Time of Disposition: 14:16
[2024-02-04 11:00] LABS: Basophils % (A) 0 %; Eosinophils # (A) 0.1 k/uL (0-0.7); Eosinophils % (A) 1 %; HCT 44.4 % (39.0-53.0); HGB 14.6 gm/dL (13.0-17.5); Lymphocytes # (A) 0.9 k/uL (1.0-4.8); Lymphocytes % (A) 8 %; MCH 29.7 pg (25.0-35.0); MCV 89.8 fL (80.0-100.0); Mean Platelet Volume 8.3; Monocytes # (A) 0.5 k/uL (0-1.0); Monocytes % (A) 4 %; Neutrophils # (A) 9.5 k/uL (1.3-7.7); Neutrophils % (A) 86 %; Platelet Count 277 k/uL (150-450); RBC 4.94 m/uL (4.30-5.90); RDW 13.6 % (11.5-15.5); WBC 11.1 k/uL (3.8-10.6)
[2024-02-04 11:14] LABS: ALT 47 U/L (4-49); AST 41 U/L (17-59); African American GFR (CKD) 88 (>60 ml/min/1.73 sqM); Albumin 4.5 g/dL (3.5-5.0); Alkaline Phosphatase 108 U/L (38-126); Anion Gap 10 mmol/L; Blood Urea Nitrogen 21 mg/dL (9-20); Calcium 9.6 mg/dL (8.4-10.2); Carbon Dioxide 20 mmol/L (22-30); Chloride 109 mmol/L (98-107); Glucose 119 mg/dL (74-99); Non-African American GFR(CKD) 77 (>60 ml/min/1.73 sqM); Potassium 4.3 mmol/L (3.5-5.1); Sodium 139 mmol/L (137-145); Total Bilirubin 1.4 mg/dL (0.2-1.3); Total Protein 7.5 g/dL (6.3-8.2)
--- NOTE | 2024-02-04 11:14 | XR ---
Left hand HISTORY: Left hand infection. COMPARISON: None TECHNIQUE: 3 views left hand were obtained. FINDINGS: There is soft tissue swelling and destruction of the articular surfaces of the DIP joint of the fifth finger. There is hypertrophic spurring. The findings are consistent with a "gull wing" appearance an d are typical of erosive osteoarthritis. There is moderate to marked joint space narrowing of the third MCP joint but no destructive changes. Carpal bones and articulations are normal. IMPRESSION: 1. 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 2. Osteoarthritic changes at third MCP joint without erosive changes.
[2024-02-04 12:58] LABS: C Reactive Protein 5.6 mg/dL (<1.0)
[2024-02-04] MEDS ORDERED: NALOXONE 0.4 MG/ML 1 ML VIAL IV PRN (14:12)
--- NOTE | 2024-02-04 14:30 | P.HPIM ---
History of Present Illness H&P Date: 02/04/24 Patient is a 78-year-old male with history of CAD, hypertension, dyslipidemia, GERD presenting with hand swelling. 3 days ago, his pet cat bit him on the left hand. He subsequently went to urgent care, received tetanus shot and oral Augmentin. He started noticing worsening left hand swelling and decreased range of motion. He then decided to come to the hospital. He denies any fevers or chills, or any other complaints. He denies any alcohol, smoking or illicit drug use history. In the ED, temperature was 97.4, pulse 76, respiratory rate 18, blood pressure 136/72, saturating 100% on room air. WBC 11.1, bicarb 29, creatinine 0.96, CRP 5.6. Left hand x-ray shows changes consistent with erosive arthritis. Patient admitted for hand cellulitis, failed outpatient antibiotic therapy. Orthopedic surgery consulted. Pertinent positives and negatives as discussed in HPI, a complete review of systems was performed and all other systems are negative. Patient seen and examined at bedside. Vital signs reviewed General: nontoxic, no distress, appears at stated age Derm: warm, dry Head: atraumatic, normocephalic, symmetric Eyes: EOMI, no lid lag, anicteric sclera, pupils equal round reactive to light ENT: Nose and ears atraumatic Neck: No thyromegaly, supple Mouth: no lip lesion, mucus membranes moist Cardiovascular: S1S2 reg, no murmur, no edema Lungs: clear to auscultation bilateral, no rhonchi, no rales, no wheeze, no accessory muscle use Abdominal: soft, nontender to palpation, no guarding, no appreciable organomegaly Ext: Left hand dorsal aspect edematous, erythematous, reduced range of motion Neuro: CN II-XII grossly intact Psych: Alert, oriented, appropriate affect Assessment/Plan: Active: Left hand cellulitis Infected cat bite -Received tetanus vaccine outpatient -Failed Augmentin therapy -Started on IV Unasyn 3 g every 6 hours -Consult Ortho surgery -Pain control with oral Tylenol as needed, [place] as needed, IV morphine as needed, monitor for sedation Chronic: CAD Hypertension Dyslipidemia GERD -Restart home medications once reconciled by pharmacy The patient is admitted with an anticipated less than 2 midnight stay as observation status for evaluation of animal bite. Surrogate decision-maker: CODE STATUS: Full code DVT prophylaxis: Lovenox Anticipated discharge date: Pending clinical course Anticipated discharge place: Pending clinical course A total of 55 minutes was spent on the care of this complex patient more than 50% of the time was spent in counseling and care coordination. 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, Last Myocardial Infarction Date:: 2012 History of Any Multi-Drug Resistant Organisms: None Reported Past Surgical History: Heart Catheterization With Stent Additional Past Surgical History / Comment(s): 1 stent Date of Last Stent Placement:: 2012 Past Psychological History: No Psychological Hx Reported Smoking Status: Never smoker Past Alcohol Use History: Occasional, Rare Past Drug Use History: None Reported - Past Family History Father Family Medical History: Diabetes Mellitus Additional Family Medical History / Comment(s): heart disease Mother Family Medical History: Dementia Medications and Allergies Home Medications Medication Instructions Recorded Confirmed Type Aspirin EC [Ecotrin Low Dose] 81 mg PO DAILY 08/04/19 08/04/19 History Atorvastatin [Lipitor] 20 mg PO HS 08/04/19 08/04/19 History Clopidogrel [Plavix] 75 mg PO DAILY 08/04/19 08/04/19 History Famotidine [Pepcid] 20 mg PO HS 08/04/19 08/04/19 History Metoprolol Tartrate [Lopressor] 25 mg PO BID 08/04/19 08/04/19 History Topiramate [Topamax] 25 mg PO HS 08/04/19 08/04/19 History HYDROcodone/APAP 5-325MG [[place] 1 tab PO Q4HR PRN 3 Days #18 tab 08/06/19 Rx 5-325] Allergies Allergy/AdvReac Type Severity Reaction Status Date / Time No Known Allergies Allergy Verified 02/04/24 10:04 Physical Exam Vitals: Vital Signs Temp Pulse Resp BP Pulse Ox 02/04/24 13:11 78 16 146/90 99 02/04/24 09:59 97.4 F L 76 18 136/72 100 Intake and Output 02/03/24 02/04/24 02/04/24 22:59 06:59 14:59 Other: Weight 58.967 kg Results CBC & Chem 7: 02/04/24 10:44 02/04/24 10:44 Labs: Abnormal Lab Results - Last 24 Hours (Table) 02/04/24 02/04/24 Range/Units 10:44 10:44 WBC 11.1 H (3.8-10.6) k/uL Neutrophils # 9.5 H (1.3-7.7) k/uL Lymphocytes # 0.9 L (1.0-4.8) k/uL Chloride 109 H (98-107) mmol/L Carbon Dioxide 20 L (22-30) mmol/L BUN 21 H (9-20) mg/dL Glucose 119 H (74-99) mg/dL Total Bilirubin 1.4 H (0.2-1.3) mg/dL C-Reactive Protein 5.6 H (<1.0) mg/dL
[2024-02-04] MEDS: AMPICILLIN-SULBACTAM 3 GM in SODIUM CHLORIDE 0.9% 100 ML IVPB STA (15:25)
[2024-02-04] MEDS: MORPHINE SULFATE 4 MG/ML SYRINGE IV PRN (21:26)
[2024-02-05] MEDS: CLOPIDOGREL 75 MG TAB PO SCH (08:56)
[2024-02-05] MEDS: ASPIRIN 81 MG PO SCH (08:57)
[2024-02-05] MEDS: HYDROcodone/APAP 5-325MG 1 EACH TAB PO PRN (08:57)
[2024-02-05] MEDS: METOPROLOL TARTRATE 25 MG TAB PO SCH (08:57)
[2024-02-05] MEDS: FAMOTIDINE 20 MG TAB PO SCH (08:57)
[2024-02-05] MEDS: TOPIRAMATE 25 MG TAB PO SCH (08:57)
[2024-02-05] MEDS: AMPICILLIN-SULBACTAM 3 GM in SODIUM CHLORIDE 0.9% 100 ML IVPB SCH (08:59)
[2024-02-05 11:56] VITALS: BMI 18.1
--- NOTE | 2024-02-05 12:30 | P.CNOR ---
History of Present Illness - HPI Consult date: 02/05/24 Requesting physician: Larisa Ott Consult reason: other (cellulitis left hand) History of present illness: Patient is a 78-year-old male who presented to the emergency department yesterd ay status post cat bite to left hand. Patient was present with during encounter at bedside. Patient states on Sunday family members cat bit him in the left hand. Patient mentions the cat is fully vaccinated patient says he was seen in urgent care on Sunday where he was placed on Augmentin and has taken 2 doses patient reports over the past couple days he has had increased warmth and swelling on the back of the hand. He says he has difficulty moving his wrist. He says most the pain is on the back of the hand. Patient does have minimal relief with Tylenol. He denies any fever/chills. Patient is being treated on Unasyn here in the hospital. Medicine and infectious disease are following. X- ray of the left hand was performed. Does not demonstrate anything suspicious for abscess of the left hand. 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), Last Myocardial Infarction Date:: 2012 History of Any Multi-Drug Resistant Organisms: None Reported Past Surgical History: Heart Catheterization With Stent Additional Past Surgical History / Comment(s): 1 stent Past Anesthesia/Blood Transfusion Reactions: No Reported Reaction Date of Last Stent Placement:: 2012 Past Psychological History: No Psychological Hx Reported Smoking Status: Never smoker Past Alcohol Use History: Occasional, Rare Past Drug Use History: None Reported - Past Family History Father Family Medical History: Diabetes Mellitus Additional Family Medical History / Comment(s): heart disease Mother Family Medical History: Dementia Medications and Allergies Home Medications Medication Instructions Recorded Confirmed Type Aspirin EC [Ecotrin Low Dose] 81 mg PO DAILY 08/04/19 02/04/24 History Atorvastatin [Lipitor] 20 mg PO HS 08/04/19 02/04/24 History Clopidogrel [Plavix] 75 mg PO DAILY 08/04/19 02/04/24 History Famotidine [Pepcid] 20 mg PO DAILY 08/04/19 02/04/24 History Metoprolol Tartrate [Lopressor] 25 mg PO BID 08/04/19 02/04/24 History Topiramate [Topamax] 25 mg PO DAILY 08/04/19 02/04/24 History Amoxic-Pot Clav 875-125Mg 1 tab PO Q12HR 02/04/24 02/04/24 History [Augmentin 875-125] Allergies Allergy/AdvReac Type Severity Reaction Status Date / Time No Known Allergies Allergy Verified 02/04/24 15:28 Physical Examination Left hand is present with swelling and some erythema. There are 2 puncture wounds over the dorsum of the left hand. Sensation is equal, symmetric, bilater al intact throughout the upper extremities on exam. There is tenderness to patient diffusely throughout the dorsum of the left hand. There is also some fair amount of tenderness to palpation over the third webspace in the left hand. Nontender to palpation throughout rest of exam. Patient is able to wiggle digits and left hand. Patient is unable to make a full fist in the left hand due to the swelling and pain referred to the dorsum of the left hand. Patient does have some limited range of motion in flexion extension of the left wrist due to pain and swelling. 4/5 in all major motor groups in left upper extremity. Radial pulse intact, 2+ bilaterally. Cap refill under 3 seconds in digits of upper extremities. Results - Labs Labs: Abnormal Lab Results - Last 24 Hours (Table) 02/04/24 02/04/24 Range/Units 10:44 10:44 WBC 11.1 H (3.8-10.6) k/uL Neutrophils # 9.5 H (1.3-7.7) k/uL Lymphocytes # 0.9 L (1.0-4.8) k/uL Chloride 109 H (98-107) mmol/L Carbon Dioxide 20 L (22-30) mmol/L BUN 21 H (9-20) mg/dL Glucose 119 H (74-99) mg/dL Total Bilirubin 1.4 H (0.2-1.3) mg/dL C-Reactive Protein 5.6 H (<1.0) mg/dL H & H 02/04/24 Range/Units 10:44 Hgb 14.6 (13.0-17.5) gm/dL Hct 44.4 (39.0-53.0) % Result Diagrams: 02/04/24 10:44 02/04/24 10:44 - Diagnostic results Wrist/Hand x-ray: report reviewed, image reviewed (X-ray of the left hand is negative for any fractures. Negative for any abscess formation. There is evident arthritis in the DIPJ of the fifth digit in the left hand.) Assessment and Plan Assessment: 1. Left hand cellulitis; left hand swelling Plan: 1. Left hand cellulitis; left hand swelling - X-ray of the left hand is negative for any fractures. Negative for any abscess formation. There is evident arthritis in the DIPJ of the fifth digit in the left hand. I did discuss the findings of the imaging and exam with my attending, Dr. Hunt's and. At this time we are not recommending any emergent orthopedic surgical intervention. We do recommend patient to continue on IV antibiotics. We appreciate medical recommendations and infectious disease recommendations. We will continue to follow patient closely daily. Patient may perform gentle range of motion exercises of the left hand. Pain medication as needed. 2. Appreciate medical and infectious disease management 3. Pain management - norco; tylenol 4. DVT prophylaxis - plavix 5. GI prophylaxis - pepcid 6. PT/OT -encouraged to perform gentle range of motion exercises 7. Encourage incentive spirometer use 8 appreciate consult Time with Patient: Less than 30
--- NOTE | 2024-02-05 14:11 | P.PN ---
Subjective Progress Note Date: 02/05/24 Hospital course: Patient is a very pleasant 78-year-old male with a past medical history of CAD status post stenting, hypertension, hyperlipidemia, and GERD. He presented to the emergency department on 02/04/2024 with a chief complaint of left hand swelling and redness status post cat bite 3 days prior. Patient reports cat is his pet and is up-to-date on all vaccinations including rabies. Patient was evaluated at urgent care and given a tetanus shot and started on oral Augmentin at time of the event but experienced progressively worsening left hand pain, s welling, and decreased range of motion so he came to the emergency department for evaluation. Upon arrival to our facility, patient underwent evaluation in the emergency department. Vital signs upon arrival revealed blood pressure 136/72, heart rate 76, respiratory rate 18, temp 97.4 F, and SpO2 of 100% on room air. Labs completed and reviewed. CBC showing mild leukocytosis with WBC count of 11.1. BMP showing non-anion gap metabolic acidosis with chloride of 109, bicarb of 20, and anion gap of 10 with prerenal azotemia with BUN of 21. Blood glucose 119. Liver profile showing mild hyperbilirubinemia with total bili of 1.4 otherwise normal findings. CRP was elevated at 5.6. 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 Patient was admitted under services with consultation to orthopedic surgery team. Physical exam: Patient was seen and fully evaluated at bedside. He was sitting up in bed visiting with at bedside. Patient reports moderate pain to left hand somewhat unchanged. He denies any worsening of swelling or erythema and denies having any new complaints at this time. Vital signs reviewed and stable. General: Nontoxic, no distress and appears stated age. Derm: Skin warm and dry, normal coloration for ethnicity. Posterior left hand moderate swelling and erythema, puncture/bite wounds noted with no active drainage. Head: Atraumatic, normocephalic and symmetric. Eyes: EOM's intact, no lid lag, and anicteric sclera Mouth: no lip lesions, mucus membranes moist Cardiovascular: regular rate and rhythm with normal S1S2, no murmur, positive posterior tibial pulses bilaterally, and cap refill < 2 seconds. Lungs: Respirations even, regular, and unlabored on room air. Lungs CTA bilaterally, no rhonchi, no rales, no wheezing, and no accessory muscle usage. Abdominal: soft, nontender to palpation, no guarding, no appreciable organomegaly Ext: No gross muscle atrophy, no edema, no contractures. Movement and sensation intact. Patient with decreased ROM of left hand, unable to completely make closed fist secondary to pain and swelling of left hand. Neuro: Speech clear, face symmetrical and CN II-XII grossly intact with no noted focal neuro deficits Psych: Alert and oriented to person, place, time, and situation. Appropriate and pleasant affect. Assessment and Plan of Care: Cat bite with surrounding cellulitis of left hand -Continue IV antibiotics with Unasyn 3 g every 6 hours. -Patient received tetanus shot outpatient at urgent care -Orthopedic surgery following, appreciate recommendations. -Continue symptomatic care and pain management with Tylenol 650 mg p.o. every 6 hours as needed for mild pain/fever, [place] 5/325 mg tablets every 4 hours as needed for moderate pain and morphine 4 mg IVP every 4 hours as needed for severe pain. -Follow-up on blood culture results. CAD status post stenting Hypertension Hyperlipidemia Continue daily medication regimen with aspirin 81 mg daily, atorvastatin 20 mg nightly, Plavix 75 mg daily,and metoprolol 25 mg twice daily. Data and imaging reviewed: Vital signs reviewed. Blood pressure 144/82, heart rate 99, respiratory rate 16, temp 98.4 F, and SpO2 of 99% on room air. CBC showing mild leukocytosis with WBC count of 11.1. BMP showing non-anion gap metabolic acidosis with chloride of 109, bicarb of 20, and anion gap of 10 with prerenal azotemia with BUN of 21. Blood glucose 119. Liver profile showing mild hyperbilirubinemia with total bili of 1.4 otherwise normal findings. CRP was elevated at 5.6. 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 CODE STATUS: Full Code DVT prophylaxis: SCDs Anticipated discharge date: Pending clinical course Anticipated discharge place: Home Patient was seen independently by Nurse Pracitioner. This document was prepared using [employer] dictation software. Please allow for errors in office machines teacher, while rare they do occur. Kirt Rodriguez NP rendered care for this patient independently, reviewed the findings and plan as documented in the note above. I did not physically speak with or examine the patient on this date. Objective - Vital Signs Vital signs: Vital Signs Temp 98.7 F 02/05/24 01:36 Pulse 79 02/05/24 01:36 Resp 18 02/05/24 01:36 BP 137/75 02/05/24 01:36 Pulse Ox 98 02/05/24 01:36 FiO2 Intake & Output 02/04/24 02/05/24 02/05/24 18:59 06:59 18:59 Intake Total 240 480 Balance 240 480 Weight 58.967 kg 58.967 kg Intake: Oral 240 480 Other: Voiding Method Toilet # Voids 1 2 - Labs CBC & Chem 7: 02/04/24 10:44 02/04/24 10:44 Labs: Abnormal Lab Results - Last 24 Hours (Table) 02/04/24 02/04/24 Range/Units 10:44 10:44 WBC 11.1 H (3.8-10.6) k/uL Neutrophils # 9.5 H (1.3-7.7) k/uL Lymphocytes # 0.9 L (1.0-4.8) k/uL Chloride 109 H (98-107) mmol/L Carbon Dioxide 20 L (22-30) mmol/L BUN 21 H (9-20) mg/dL Glucose 119 H (74-99) mg/dL Total Bilirubin 1.4 H (0.2-1.3) mg/dL C-Reactive Protein 5.6 H (<1.0) mg/dL
[2024-02-05 15:47] LABS: Basophils % (A) 0 %; Eosinophils # (A) 0.1 k/uL (0-0.7); Eosinophils % (A) 1 %; HCT 40.8 % (39.0-53.0); HGB 13.4 gm/dL (13.0-17.5); Lymphocytes # (A) 1.3 k/uL (1.0-4.8); Lymphocytes % (A) 17 %; MCH 29.4 pg (25.0-35.0); MCHC 32.9 g/dL (31.0-37.0); MCV 89.2 fL (80.0-100.0); Mean Platelet Volume 8.2; Monocytes # (A) 0.4 k/uL (0-1.0); Monocytes % (A) 5 %; Neutrophils # (A) 5.5 k/uL (1.3-7.7); Neutrophils % (A) 75 %; Platelet Count 280 k/uL (150-450); RBC 4.57 m/uL (4.30-5.90); RDW 13.5 % (11.5-15.5); WBC 7.4 k/uL (3.8-10.6)
[2024-02-05 16:02] LABS: African American GFR (CKD) >90 (>60 ml/min/1.73 sqM); Anion Gap 9 mmol/L; Blood Urea Nitrogen 17 mg/dL (9-20); Calcium 9.4 mg/dL (8.4-10.2); Carbon Dioxide 20 mmol/L (22-30); Chloride 110 mmol/L (98-107); Glucose 141 mg/dL (74-99); Non-African American GFR(CKD) 83 (>60 ml/min/1.73 sqM); Potassium 3.9 mmol/L (3.5-5.1); Sodium 139 mmol/L (137-145)
[2024-02-05] MEDS: ATORVASTATIN 20 MG TAB PO SCH (20:33)
--- NOTE | 2024-02-06 07:33 | P.CONS ---
History of Present Illness - Reason for Consult Consult date: 02/05/24 Cellulitis, antibiotic management Requesting physician: Abdias Morris - Chief Complaint Left upper arm pain and swelling x few days - History of Present Illness Patient is a 78-year-old male with a past medical history significant for hypertension hyperlipidemia reflux ID presenting to the ER for evaluation of left hand and forearm cat bite that apparently happened 2 days before presentation to the hospital cat bite was from the family cat fully vaccinated patient started having swelling and redness to the left hand and upper arm that has progressively got worse patient went to an urgent care with the patient was started on Augmentin he has taken 2 doses however did have progressive worsening of his swelling redness and pain for the patient presented to the area on arrival to the ER the patient was complaining of pain to almost 10 out of 10 in severity with associated swelling and redness did not have any open wound or any drainage did have some chills but denies high-grade fever on arrival to the ER the patient was afebrile and no fever have been called subsequently patient was tachycardic but not hypotensive or hypoxic and no need for supplemental oxygen he did have white count of 11.1 with a left shift creatinine 0.96 liver isms are normal blood cultures obtained which are currently pending patient did have a x- ray of the hand changes of erosive arthritis of the DIP joint of the fifth digit osteoarthritic changes at the third MCP joint without erosive changes patient was started on Unasyn has been admitted to the hospital the patient was evaluated by orthopedic surgery who subsequently consulted ID for antibiotic management Review of Systems Positive point and negatives has been mentioned in the HPI, complete review of systems was performed and all other systems are negative Past Medical History Past Medical History: GERD/Reflux, Hyperlipidemia, Hypertension, Myocardial Infarction ([place]) Additional Past Medical History / Comment(s): 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), Last Myocardial Infarction Date:: 2012 History of Any Multi-Drug Resistant Organisms: None Reported Past Surgical History: Heart Catheterization With Stent Additional Past Surgical History / Comment(s): 1 stent Past Anesthesia/Blood Transfusion Reactions: No Reported Reaction Date of Last Stent Placement:: 2012 Past Psychological History: No Psychological Hx Reported Smoking Status: Never smoker Past Alcohol Use History: Occasional, Rare Past Drug Use History: None Reported - Past Family History Father Family Medical History: Diabetes Mellitus Additional Family Medical History / Comment(s): heart disease Mother Family Medical History: Dementia Medications and Allergies Home Medications Medication Instructions Recorded Confirmed Type Aspirin EC [Ecotrin Low Dose] 81 mg PO DAILY 08/04/19 02/04/24 History Atorvastatin [Lipitor] 20 mg PO HS 08/04/19 02/04/24 History Clopidogrel [Plavix] 75 mg PO DAILY 08/04/19 02/04/24 History Famotidine [Pepcid] 20 mg PO DAILY 08/04/19 02/04/24 History Metoprolol Tartrate [Lopressor] 25 mg PO BID 08/04/19 02/04/24 History Topiramate [Topamax] 25 mg PO DAILY 08/04/19 02/04/24 History Amoxic-Pot Clav 875-125Mg 1 tab PO Q12HR 02/04/24 02/04/24 History [Augmentin 875-125] Allergies Allergy/AdvReac Type Severity Reaction Status Date / Time No Known Allergies Allergy Verified 02/04/24 15:28 Physical Exam Vitals: Vital Signs Temp Pulse Pulse Resp BP BP Pulse Ox 02/05/24 08:00 98.4 F 99 16 144/82 99 02/05/24 01:36 98.7 F 79 18 137/75 98 02/04/24 21:16 108 H 18 137/87 100 02/04/24 20:00 98.3 F 112 H 120 H 20 154/82 125/78 99 02/04/24 13:11 78 16 146/90 99 Intake and Output 02/04/24 02/05/24 02/05/24 22:59 06:59 14:59 Intake Total 720 0 Balance 720 0 Intake: Oral 720 0 Other: Voiding Method Toilet # Voids 1 2 Weight 58.967 kg 58.967 kg GENERAL DESCRIPTION: Elderly male lying in bed, no distress. No tachypnea or accessory muscle of respiration use. HEENT: Shows Pallor , no scleral icterus. Oral mucous membrane is dry. No pharyngeal erythema or thrush NECK: Trachea central, no thyromegaly. LUNGS: Unlabored breathing. Clear to auscultation anteriorly. No wheeze or crackle. HEART: S1, S2, regular rate and rhythm. No loud murmur ABDOMEN: Soft, no tenderness , guarding or rigidity, no organomegaly EXTREMITIES: Left forearm did have diffuse swelling and redness no induration no drainage tender to touch. SKIN: No rash, no masses palpable. NEUROLOGICAL: The patient is awake, alert, oriented x3, mood and affect normal. Results CBC & Chem 7: 02/05/24 14:55 02/05/24 14:55 Labs: Abnormal Lab Results - Last 24 Hours (Table) 02/04/24 Range/Units 10:44 C-Reactive Protein 5.6 H (<1.0) mg/dL Assessment and Plan (1) Left arm cellulitis Current Visit: Yes Status: Acute Code(s): L03.114 - CELLULITIS OF LEFT UPPER LIMB SNOMED Code(s): 97448913198194519 (2) Cat bite of left hand Current Visit: Yes Status: Acute Code(s): S61.452A - OPEN BITE OF LEFT HAND, INITIAL ENCOUNTER; W55.01XA - BITTEN BY CAT, INITIAL ENCOUNTER SNOMED Code(s): 316764382 (3) Cellulitis of left hand Current Visit: Yes Status: Acute Code(s): L03.114 - CELLULITIS OF LEFT UPPER LIMB SNOMED Code(s): 23434831969763628 (4) Failure of outpatient treatment Current Visit: Yes Status: Acute Code(s): Z78.9 - OTHER SPECIFIED HEALTH STATUS SNOMED Code(s): 609599369 Plan: 1patient presented hospital with a left hand and forearm cellulitis from a cat bite that happened 2 days before the patient was brought into the hospital and need to cover for the polymicrobial kaia of the Mouth including Pasteurella keeping in mind abnormality seen on the x-rays will need to be treated for possible deep infection rather than superficial cellulitis. 2Unasyn 3 g every 6 hours should provide adequate empiric coverage while waiting for condition to stabilize We will follow on clinical condition and cultures to further adjust medication if needed Thank you for this consultation we will follow the patient along with you Dictation was produced using [employer] software. please excuse any grammatical, word or spelling errors. Time with Patient: Greater than 30
[2024-02-06 09:18] LABS: C Reactive Protein 5.8 mg/dL (0.00-0.80); Magnesium 2.1 mg/dL (1.5-2.4)
--- NOTE | 2024-02-06 12:46 | P.PN ---
Subjective Progress Note Date: 02/06/24 Principal diagnosis: Left upper extremity cellulitis, status post cat bite Patient was evaluated today at bedside, he is resting comfortably, he has multiple family members including his at bedside. Patient notes significant improvement in his overall symptoms since yesterday. The redness is essentially gone, he has minimal swelling to the left wrist and minimal discomf ort with both palpation and range of motion. He denies any fevers or chills. Objective - Vital Signs Vital signs: Vital Signs Temp 98.0 F 02/06/24 07:16 Pulse 89 02/06/24 07:16 Resp 16 02/06/24 07:16 BP 116/67 02/06/24 07:16 Pulse Ox 97 02/06/24 07:16 FiO2 Intake & Output 02/05/24 02/06/24 02/06/24 18:59 06:59 18:59 Intake Total 598 360 118 Balance 598 360 118 Weight 58.967 kg Intake: Oral 598 360 118 Other: Voiding Method Toilet Toilet # Voids 2 2 - Exam Left upper extremity: 4 small abrasions noted on the dorsum of the hand, there is no open lesions, areas of erythema noted at the dorsum or volar aspect of the wrist. There is very minimal soft tissue swelling at the dorsum of the wrist. Active and passive range of motion of the wrist reproduces no pain. He can wiggle all fingers with no difficulty. His sensation to light touch is intact throughout the extremity. His radial and ulnar pulse are 2+ - Labs CBC & Chem 7: 02/05/24 14:55 02/05/24 14:55 Labs: Abnormal Lab Results - Last 24 Hours (Table) 02/05/24 02/06/24 Range/Units 14:55 02:47 Chloride 110 H (98-107) mmol/L Carbon Dioxide 20 L (22-30) mmol/L Glucose 141 H (74-99) mg/dL C-Reactive Protein 5.80 H (0.00-0.80) mg/dL Microbiology - Last 24 Hours (Table) 02/04/24 15:08 Blood Culture - Preliminary Blood Assessment and Plan Assessment: Left upper extremity cellulitis Status post cat bite Other medical comorbidities Plan: I was able to discuss the case again with my attending Dr. Morris, no orthopedic surgical intervention is recommended at this time Continue conservative measures, this to include icing of the wrist, basic wrist and hand motion exercises Continue IV antibiotics with hopeful adjustment to oral medications shortly GI and DVT prophylaxis per primary medical service Pain control, continue with current medications Other medical specialty recommendations appreciated Orthopedically patient remains stable, please contact our service with any further questions regarding this patient
--- NOTE | 2024-02-06 15:00 | P.PN ---
Subjective Progress Note Date: 02/06/24 Hospital course: Patient is a very pleasant 78-year-old male with a past medical history of CAD status post stenting, hypertension, hyperlipidemia, and GERD. He presented to the emergency department on 02/04/2024 with a chief complaint of left hand swelling and redness status post cat bite 3 days prior. Patient reports cat is his pet and is up-to-date on all vaccinations including rabies. Patient was evaluated at urgent care and given a tetanus shot and started on oral Augmentin at time of the event but experienced progressively worsening left hand pain, s welling, and decreased range of motion so he came to the emergency department for evaluation. Upon arrival to our facility, patient underwent evaluation in the emergency department. Vital signs upon arrival revealed blood pressure 136/72, heart rate 76, respiratory rate 18, temp 97.4 F, and SpO2 of 100% on room air. Labs completed and reviewed. CBC showing mild leukocytosis with WBC count of 11.1. BMP showing non-anion gap metabolic acidosis with chloride of 109, bicarb of 20, and anion gap of 10 with prerenal azotemia with BUN of 21. Blood glucose 119. Liver profile showing mild hyperbilirubinemia with total bili of 1.4 otherwise normal findings. CRP was elevated at 5.6. 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 Patient was admitted under services with consultation to orthopedic surgery team. Physical exam: Patient was seen and fully evaluated at bedside. He was sitting up in bed visiting with at bedside. Patient reports continued moderate pain and swelling to left hand somewhat unchanged.. He reports he believes erythema somewhat better and denies having any new complaints at this time. Patient de nies having any numbness/tingling/weakness in his extremities. Vital signs reviewed and stable. General: Nontoxic, no distress and appears stated age. Derm: Skin warm and dry, normal coloration for ethnicity. Posterior left hand moderate swelling and erythema, puncture/bite wounds noted with no active drainage. Head: Atraumatic, normocephalic and symmetric. Eyes: EOM's intact, no lid lag, and anicteric sclera Mouth: no lip lesions, mucus membranes moist Cardiovascular: regular rate and rhythm with normal S1S2, no murmur, positive posterior tibial pulses bilaterally, and cap refill < 2 seconds. Lungs: Respirations even, regular, and unlabored on room air. Lungs CTA bilaterally, no rhonchi, no rales, no wheezing, and no accessory muscle usage. Abdominal: soft, nontender to palpation, no guarding, no appreciable organomegaly Ext: No gross muscle atrophy, no edema, no contractures. Movement and sensation intact. Patient with decreased ROM of left hand, unable to completely make closed fist secondary to pain and swelling of left hand. Neuro: Speech clear, face symmetrical and CN II-XII grossly intact with no noted focal neuro deficits Psych: Alert and oriented to person, place, time, and situation. Appropriate and pleasant affect. Assessment and Plan of Care: Cat bite with surrounding cellulitis of left hand -Continue IV antibiotics with Unasyn 3 g every 6 hours. -Patient received tetanus shot outpatient at urgent care -Orthopedic surgery following, scheduled patient to undergo incision and drainage with irrigation and debridement of left hand with Dr. Morris. -Continue symptomatic care and pain management with Tylenol 650 mg p.o. every 6 hours as needed for mild pain/fever, [place] 5/325 mg tablets every 4 hours as needed for moderate pain and morphine 4 mg IVP every 4 hours as needed for severe pain. -Follow-up on blood culture results. Currently showing no growth to date. CAD status post stenting Hypertension Hyperlipidemia Continue daily medication regimen with aspirin 81 mg daily, atorvastatin 20 mg nightly, Plavix 75 mg daily,and metoprolol 25 mg twice daily. Data and imaging reviewed: Vital signs reviewed. Blood pressure blood pressure 116/67, heart rate 89, respiratory rate 16, temp 98.0 F, and SpO2 of 97% on room air. CRP remains elevated at 5.80. 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 CODE STATUS: Full Code DVT prophylaxis: SCDs Anticipated discharge date: Pending clinical course Anticipated discharge place: Home Patient was seen independently by Nurse Pracitioner. This document was prepared using [employer] dictation software. Please allow for errors in public health doctor, while rare they do occur. Kirt Rodriguez NP rendered care for this patient independently, reviewed the findings and plan as documented in the note above. I did not physically speak with or examine the patient on this date. Objective - Vital Signs Vital signs: Vital Signs Temp 98.0 F 02/06/24 07:16 Pulse 89 02/06/24 07:16 Resp 16 02/06/24 07:16 BP 116/67 02/06/24 07:16 Pulse Ox 97 02/06/24 07:16 FiO2 Intake & Output 02/05/24 02/06/24 02/06/24 18:59 06:59 18:59 Intake Total 598 360 Balance 598 360 Weight 58.967 kg Intake: Oral 598 360 Other: Voiding Method Toilet # Voids 2 2 - Labs CBC & Chem 7: 02/07/24 02:54 02/07/24 02:54 Labs: Abnormal Lab Results - Last 24 Hours (Table) 02/05/24 Range/Units 14:55 Chloride 110 H (98-107) mmol/L Carbon Dioxide 20 L (22-30) mmol/L Glucose 141 H (74-99) mg/dL Microbiology - Last 24 Hours (Table) 02/04/24 15:08 Blood Culture - Preliminary Blood
--- NOTE | 2024-02-07 07:42 | P.PN ---
Subjective Progress Note Date: 02/06/24 Principal diagnosis: Left hand forearm cat bite cellulitis Patient is a 78-year-old male with a past medical history significant for hypertension hyperlipidemia reflux NV presenting to the ER for evaluation of left hand and forearm cat bite that apparently happened 2 days before presentation to the hospital and seem to have failed outpatient oral antibiotic therapy patient did have erosive arthritis of the DIP joint of the fifth digit. On today's evaluation that is 02/06/2024, patient has been afebrile, patient is breathing comfortably and is currently on room air, patient denies having any significant cough no chest pain shortness of breath, patient denies nausea vomiting or diarrhea and no abdominal pain the patient left hand and forearm swelling redness slightly decreased. Patient did have CRP of 5.80 no CBC was done today blood cultures are currently pending Objective - Vital Signs Vital signs: Vital Signs Temp 97.9 F 02/07/24 07:36 Pulse 83 02/07/24 07:36 Resp 13 02/07/24 07:36 BP 123/85 02/07/24 07:36 Pulse Ox 100 02/07/24 07:36 FiO2 Intake & Output 02/06/24 02/07/24 02/07/24 18:59 06:59 18:59 Intake Total 236 Balance 236 Intake: Oral 236 Other: Voiding Method Toilet # Voids 4 1 # Bowel Movements 1 - Exam GENERAL DESCRIPTION: An elderly male lying in bed in no distress RESPIRATORY SYSTEM: Unlabored breathing , decreased breath sounds at bases HEART: S1 S2 regular rate and rhythm , ABDOMEN: Soft , no tenderness EXTREMITIES: Left hand forearm swelling redness slightly decreased no drainage - Labs CBC & Chem 7: 02/05/24 14:55 02/05/24 14:55 Labs: Abnormal Lab Results - Last 24 Hours (Table) 02/06/24 Range/Units 02:47 C-Reactive Protein 5.80 H (0.00-0.80) mg/dL Microbiology - Last 24 Hours (Table) 02/04/24 15:08 Blood Culture - Preliminary Blood 02/05/24 14:58 Blood Culture - Preliminary Blood Assessment and Plan (1) Left arm cellulitis Current Visit: Yes Status: Acute Code(s): L03.114 - CELLULITIS OF LEFT UPPER LIMB SNOMED Code(s): 75850737919825213 (2) Cat bite of left hand Current Visit: Yes Status: Acute Code(s): S61.452A - OPEN BITE OF LEFT HAND, INITIAL ENCOUNTER; W55.01XA - BITTEN BY CAT, INITIAL ENCOUNTER SNOMED Code(s): 179908809 (3) Cellulitis of left hand Current Visit: Yes Status: Acute Code(s): L03.114 - CELLULITIS OF LEFT UPPER LIMB SNOMED Code(s): 41901858334719086 (4) Failure of outpatient treatment Current Visit: Yes Status: Acute Code(s): Z78.9 - OTHER SPECIFIED HEALTH STATUS SNOMED Code(s): 418411416 Plan: 1patient presented hospital with a left hand and forearm cellulitis from a cat bite that happened 2 days before the patient was brought into the hospital and need to cover for the polymicrobial kaia of the Mouth including Pasteurella keeping in mind abnormality seen on the x-rays will need to be treated for possible deep infection rather than superficial cellulitis. 2patient to continue with Unasyn 3 g every 6 hours for another 24 to 48 hours before transitioning to oral antibiotics Dictation was produced using [employer] dictation software. please excuse any grammatical, word or spelling errors. Time with Patient: Less than 30
[2024-02-07 09:03] LABS: HCT 41.2 % (39.6-50.0); HGB 13.5 g/dL (13.0-17.0); MCH 29.3 pg (27.0-32.0); MCHC 32.8 g/dL (32.0-37.0); MCV 89.6 FL (80.0-97.0); Mean Platelet Volume 11.5 FL (9.5-12.2); NRBC Per 100 WBC 0 X 10*3/uL (0.00-0.01); Platelet Count 293 X 10*3/uL (140-440); RDW 13.8 % (11.5-14.5); WBC 7.06 X 10*3/uL (4.50-10.00)
[2024-02-07 09:08] LABS: ALT 88 U/L (10-49); AST 85 U/L (14-35); Albumin 3.8 g/dL (3.8-4.9); Albumin/Globulin Ratio 1.58 Ratio (1.60-3.17); Alkaline Phosphatase 135 U/L (41-126); Blood Urea Nitrogen 18.2 mg/dL (9.0-27.0); Calcium 8.9 mg/dL (8.7-10.3); Carbon Dioxide 19.4 mmol/L (21.6-31.8); Chloride 107 mmol/L (96-109); Globulin 2.4 g/dL (1.6-3.3); Glucose 115 mg/dL (70-110); Magnesium 2.2 mg/dL (1.5-2.4); Potassium 4.3 mmol/L (3.5-5.5); Sodium 138 mmol/L (135-145); Total Bilirubin 0.3 mg/dL (0.3-1.2); Total Protein 6.2 g/dL (6.2-8.2)
--- NOTE | 2024-02-07 09:47 | P.PN ---
Subjective Progress Note Date: 02/07/24 Principal diagnosis: Left upper extremity cellulitis, status post cat bite Patient was evaluated today at bedside, he is resting comfortably, does note some increase in pain compared to yesterday to the wrist. He is having a little bit harder time with range of motion with flexion extension at the wrist, this does reproduce pain. He denies any fevers or chills. Objective - Vital Signs Vital signs: Vital Signs Temp 97.9 F 02/07/24 07:36 Pulse 83 02/07/24 07:36 Resp 13 02/07/24 07:36 BP 123/85 02/07/24 07:36 Pulse Ox 100 02/07/24 07:36 FiO2 Intake & Output 02/06/24 02/07/24 02/07/24 18:59 06:59 18:59 Intake Total 236 0 Balance 236 0 Intake: Oral 236 0 Other: Voiding Method Toilet # Voids 4 1 # Bowel Movements 1 - Exam Left upper extremity: 4 small abrasions noted on the dorsum of the hand, there is no open lesions, areas of erythema noted at the dorsum or volar aspect of the wrist. There is very minimal soft tissue swelling at the dorsum of the wrist. Small area of fluctuance noticed near the radiocarpal joint on the dorsal aspect of the wrist. Active and passive range of motion of the wrist reproduces pain. He can wiggle all fingers with no difficulty. His sensation to light touch is intact throughout the extremity. His radial and ulnar pulse are 2+ - Labs CBC & Chem 7: 02/07/24 02:54 02/07/24 02:54 Labs: Abnormal Lab Results - Last 24 Hours (Table) 02/07/24 Range/Units 02:54 Carbon Dioxide 19.4 L (21.6-31.8) mmol/L Glucose 115 H (70-110) mg/dL AST 85 H (14-35) U/L ALT 88 H (10-49) U/L Alkaline Phosphatase 135 H (41-126) U/L Albumin/Globulin Ratio 1.58 L (1.60-3.17) Ratio Microbiology - Last 24 Hours (Table) 02/04/24 15:08 Blood Culture - Preliminary Blood 02/05/24 14:58 Blood Culture - Preliminary Blood Assessment and Plan Assessment: Left upper extremity cellulitis. Left wrist abscess Status post cat bite Other medical comorbidities Plan: After discussion of Dr. Morris with regards to patient's physical exam findings this morning, we plan to proceed with I&D procedure of the left wrist later today Consent will be obtained prior to the procedure N.p.o. diet currently Continue conservative measures, this to include icing of the wrist, basic wrist and hand motion exercises Continue IV antibiotics with hopeful adjustment to oral medications shortly GI and DVT prophylaxis per primary medical service Pain control, continue with current medications Other medical specialty recommendations appreciated Further recommendations to follow Time with Patient: Less than 30
--- NOTE | 2024-02-07 14:41 | P.PN ---
Subjective Progress Note Date: 02/07/24 Hospital course: Patient is a very pleasant 78-year-old male with a past medical history of CAD status post stenting, hypertension, hyperlipidemia, and GERD. He presented to the emergency department on 02/04/2024 with a chief complaint of left hand swelling and redness status post cat bite 3 days prior. Patient reports cat is his pet and is up-to-date on all vaccinations including rabies. Patient was evaluated at urgent care and given a tetanus shot and started on oral Augmentin at time of the event but experienced progressively worsening left hand pain, s welling, and decreased range of motion so he came to the emergency department for evaluation. Upon arrival to our facility, patient underwent evaluation in the emergency department. Vital signs upon arrival revealed blood pressure 136/72, heart rate 76, respiratory rate 18, temp 97.4 F, and SpO2 of 100% on room air. Labs completed and reviewed. CBC showing mild leukocytosis with WBC count of 11.1. BMP showing non-anion gap metabolic acidosis with chloride of 109, bicarb of 20, and anion gap of 10 with prerenal azotemia with BUN of 21. Blood glucose 119. Liver profile showing mild hyperbilirubinemia with total bili of 1.4 otherwise normal findings. CRP was elevated at 5.6. 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 Patient was admitted under services with consultation to orthopedic surgery team. Physical exam: Patient was seen and fully evaluated at bedside. Patient resting in bed with ice pack on left hand. He reports moderate pain in left hand and continues to have moderate swelling with decreased range of motion in left hand. Erythema has nearly resolved. Vital signs reviewed and stable. General: Nontoxic, no distress and appears stated age. Derm: Skin warm and dry, normal coloration for ethnicity. Posterior left hand moderate swelling and minimal erythema, 2 puncture/bite wounds noted with no ac tive drainage. Head: Atraumatic, normocephalic and symmetric. Eyes: EOM's intact, no lid lag, and anicteric sclera Mouth: no lip lesions, mucus membranes moist Cardiovascular: regular rate and rhythm with normal S1S2, no murmur, positive posterior tibial pulses bilaterally, and cap refill < 2 seconds. Lungs: Respirations even, regular, and unlabored on room air. Lungs CTA bilaterally, no rhonchi, no rales, no wheezing, and no accessory muscle usage. Abdominal: soft, nontender to palpation, no guarding, no appreciable organomegaly Ext: No gross muscle atrophy, no edema, no contractures. Movement and sensation intact. Patient with decreased ROM of left hand, unable to completely make cl osed fist secondary to pain and swelling of left hand. Neuro: Speech clear, face symmetrical and CN II-XII grossly intact with no noted focal neuro deficits Psych: Alert and oriented to person, place, time, and situation. Appropriate and pleasant affect. Assessment and Plan of Care: Cat bite with surrounding cellulitis of left hand -Continue IV antibiotics with Unasyn 3 g every 6 hours. -Blood Cultures showing no growth to date. -Infectious disease following, reviewed documentation in chart. -Patient received tetanus shot outpatient at urgent care prior to arrival to our facility. -Orthopedic surgery following, scheduled patient to undergo incision and drainage with irrigation and debridement of left hand with Dr. Morris later today. -Continue symptomatic care and pain management with Tylenol 650 mg p.o. every 6 hours as needed for mild pain/fever, [place] 5/325 mg tablets every 4 hours as needed for moderate pain and morphine 4 mg IVP every 4 hours as needed for severe pain. Transaminitis, unclear etiology -Will monitor. Order placed for GGT and for repeat CMP with a.m. labs. CAD status post stenting Hypertension Hyperlipidemia Continue daily medication regimen with aspirin 81 mg daily, atorvastatin 20 mg nightly, Plavix 75 mg daily,and metoprolol 25 mg twice daily. Data and imaging reviewed: Vital signs reviewed. Blood pressure 123/85, heart rate 83, respiratory rate 13, temp 97.9 F, and SpO2 of 100% on room air. Blood cultures showing no growth to date. CBC unremarkable. BMP showing mild hypocarbia with bicarb of 19.4. Blood glucose 115. Magnesium 2.2. Liver profile showing transaminitis with AST of 85, ALT of 88, and alkaline phosphatase of 135. CODE STATUS: Full Code DVT prophylaxis: SCDs Anticipated discharge date: Pending clinical course Anticipated discharge place: Home Patient was seen independently by Nurse Pracitioner. This document was prepared using [employer] dictation software. Please allow for errors in steam conditioner filling, while rare they do occur. Kirt Michael, GLOBAL SAFETY OFFICER rendered care for this patient independently, reviewed the findings and plan as documented in the note above. I did not physically speak with or examine the patient on this date. Objective - Vital Signs Vital signs: Vital Signs Temp 97.9 F 02/07/24 07:36 Pulse 83 02/07/24 07:36 Resp 13 02/07/24 07:36 BP 123/85 02/07/24 07:36 Pulse Ox 100 02/07/24 07:36 FiO2 Intake & Output 02/06/24 02/07/24 02/07/24 18:59 06:59 18:59 Intake Total 236 Balance 236 Intake: Oral 236 Other: Voiding Method Toilet # Voids 4 1 # Bowel Movements 1 - Labs CBC & Chem 7: 02/07/24 02:54 02/07/24 02:54 Labs: Abnormal Lab Results - Last 24 Hours (Table) 02/06/24 Range/Units 02:47 C-Reactive Protein 5.80 H (0.00-0.80) mg/dL Microbiology - Last 24 Hours (Table) 02/04/24 15:08 Blood Culture - Preliminary Blood 02/05/24 14:58 Blood Culture - Preliminary Blood
[2024-02-07] MEDS: IV FLUID CONTINUATION 1,000 ML IV ONE (16:17)
--- NOTE | 2024-02-07 16:25 | P.PN ---
Progress Note - Text Progress Note Date: 02/07/24 Orthopedic Surgery Risk Review Kye Vazquez is a 78 yo male presenting for evaluation of cat bite to left dorsal hand with cellulitis and abscess formation. It was my pleasure to have seen and examined [patient]. In our visit today we have had a chance to go over subjective complaints, physical examination findings and treatments including the natural course history without intervention and various interventional options. Imaging shows no fracture. Soft tissue swelling. On physical exam, Kye demonstrates pain with motion of the left wrist with erythema and small abscess formation dorsally, which is NV intact at this time. I have explained to the patient that this fracture needs stabilization. Based on the patients imaging, physical exam, and the rapid progression and disabling nature of her symptoms, at this time I recommend surgery in the form or a: I&D Left hand abscess I discussed the risk and benefits of this procedure at length with Kye. Questions were invited and answered, and the patient wishes to proceed as outlined below. Currently, I am recommendin. Incision and drainage left hand abscess 2. Review of surgical risks and benefits as well as an educational packet on the proposed surgical procedure. Risks: All surgical procedures come with inherent risks, including those related to positioning, anesthesia, intraoperative findings, and postoperative complications. It is important to understand that surgery does not come with any guarantee of a successful outcome as complications and adverse events are always possible. The patient was given a handout discussing the surgical procedure and risks associated with the intervention, both of which were discussed with the patient. These risks include but are not limited to the following: - Experiencing same, different or even worse symptoms compared to before surgery. - Requiring further surgery or other forms of treatment presently or at some time in the future . - On an extreme but fortunately relatively rare basis severe complication such as blindness, stroke, heart attack, temporary and/or permanent nerve injury, paralysis, coma, or may occur, sometimes without known explanation. - Surgical complications may include but are not limited to risk of infection, fluid accumulation in the surgical dissection site, including a seroma or hematoma, that requires additional surgery, wound drainage, bleeding, new numbness or weakness, vision changes/loss, spinal fluid leakage, non-healing and/or infected incision, headaches, difficulty or inability to swallow, hoarseness, hemopneumothorax, pneumothorax, injury to nerves, spinal cord, blood vessels, lymphatics or other vital organs (i.e., bowel injury, injury to the great vessels); heterotopic bone formation; complications related to the mario dware such as screws, rods, including misplaced hardware, device failure, hardware fracture/breakage, or hardware loosening; retained surgical instrumentations or devices and the need for further surgery. - Medical risks of the planned surgery include but are not limited to generalized Infections to the whole body or local areas outside of the surgical site (sepsis), heart attack, bleeding, anaphylaxis, meningitis, seizure, epilepsy, hearing loss, burn argueta, laceration of the head or other areas of the body, bruising, hypersensitivity of the skin, bladder over distension; allergic reaction; shoulder injury related to positioning; fat, blood and air clots to other areas of the body like heart, lungs, brain; failure of internal organs such as lungs, kidneys, liver and excessive bleeding. If blood transfusions are necessary, note that transfusions may cause intolerance reactions such as anaphylaxis or other complex reactions. Despite best efforts, the results of surgery might not heal in terms of bone, soft tissues such as skin, fascia, ligaments, and joints. [facility] has multiple operating rooms with single and overlapping rooms running daily. They currently function under the required guidelines as produced by the [facility] with regards to the overlapping rooms and will continue to comply with changes to this policy as they occur. The requirements include and are complied with as follows: (1) the critical portions of the overlapping rooms will not occur at the same time, (2) the attending physician will be physically present during the critical portions of the procedure and immediately available during the entire case, and (3) a back-up attending is designated should the primary attending not be immediately available. The patient has had a chance to review all the listed information, has been given print outs detailing this information, and has had all his/her questions answered to their satisfaction. It was my pleasure to have seen and examined Kye. In our visit today we have had a chance to go over my understanding of our patient's current condition, the natural course history without intervention and various interventional options. Questions were invited and answered, and the patient wishes to proceed as outlined above. I have seen and examined the patient for 25 minutes and we have spent more than 50% of the time in repeat and detailed counseling about the patient's condition, its natural course history with out and as much as can be predicted with surgery and re-review of various surgical treatment options. In conclusion, Kye requested we proceed with the above suggested surgery and are willing to accept risks and limitations of the suggested surgery as nature of the disease process and our best attempts at treatment for the condition. Thank you again for allowing us to be part of your patient's care. Please don't hesitate to contact me if you have any further questions. Signed and authenticated by: Abdias Torres [facility] [address] [place] [id number]
[2024-02-07] MEDS: ONDANSETRON 4 MG/2 ML VIAL IVP PRN (16:33)
[2024-02-07] MEDS ORDERED: PROPOFOL 10 MG/ML 20 ML VIAL IV ONE (16:37)
[2024-02-07] MEDS ORDERED: fentaNYL (PF) 50 MCG/ML 2 ML AMP ONE (16:37)
[2024-02-07] MEDS ORDERED: LIDOCAINE 1% INJ 10MG/ML (20 ML MDV) ONE (16:37)
--- NOTE | 2024-02-07 17:08 | P.OP ---
Date of Procedure: 02/07/24 Preoperative Diagnosis: Dorsal abscess left hand sp cat bite Postoperative Diagnosis: Dorsal abscess left hand sp cat bite Procedure(s) Performed: Incision and drainage left hand dorsal abscess Implants: None Anesthesia: MAC Surgeon: Abdias Morris Estimated Blood Loss (ml): 5 IV fluids (ml): 200 Urine output (ml): 0 Pathology: none sent Condition: stable Disposition: PACU Indications for Procedure: Kye Vazquez is a 78 yo male presenting for evaluation of cat bite to left dorsal hand with cellulitis and abscess formation. It was my pleasure to have seen and examined [patient]. In our visit today we have had a chance to go over subjective complaints, physical examination findings and treatments including the natural course history without intervention and various interventional options. Imaging shows no fracture. Soft tissue swelling. On physical exam, Kye demonstrates pain with motion of the left wrist with erythema and small abscess formation dorsally, which is NV intact at this time. I have explained to the patient that this fracture needs stabilization. Based on the patients imaging, physical exam, and the rapid progression and disabling nature of her symptoms, at this time I recommend surgery in the form or a: I&D Left hand abscess I discussed the risk and benefits of this procedure at length with Kye. Questions were invited and answered, and the patient wishes to proceed as outlined below. Currently, I am recommendin. Incision and drainage left hand abscess Description of Procedure: The patient was seen and examined in the preoperative area. All preoperative protocols were followed. Informed consent was obtained risks and benefits of the procedure were discussed at length. Risks including bleeding infection damage to the surrounding tissue and risk of reoperation were discussed with the patient. Risk of anesthesia up to and including was a discussed with the patient. These are outlined in the risk reviewed. They were willing to accept these risks and all of the risks of surgery. The patient was given a weight- based dose of antibiotics in the form of ampicillin from the floor. The patient was seen and evaluated by the anesthesia team who deemed them fit for surgery. The site was marked, the patient was willing to proceed with the procedure. The patient was transferred to the operative suite by the Department of anes thesia. There were then drifted off to sleep by the department of anesthesia and LMA anesthesia was used. Once adequate anesthesia had been obtained the patient was carefully transferred to the operative bed. All bony prominences were padded accordingly. SCDs were placed on the nonoperative lower extremities. Arms were well padded. left arm was exposed this arm board. 10:15 placed on this. Preoperative briefing was done with the operative team and everyone was ready for the procedure to start. The patients the arm was then prepped and draped in the normal sterile fashion. Timeout was then performed and all parties in agreement with the procedure to be performed. longitudinal skin incision was made over the dorsal aspect patient's left hand. Blunt dissection taken down to the abscessed area where there was phlegmon noted. Consolidated phlegmon was expressed from the area and was sent for culture cultures taken of the wound. Wound was thoroughly irrigated with normal sterile saline Irricept. Inspection of their showed phlegmon to be expressed completely area. Good bleeding bone bed was noted. 3 simple nylon stitches were placed loosely and a Silastic drain placed. He was then cleaned thoroughly and dressed sterilely with Adaptic 4 x 4's and a Kerlix this was overwrapped with an Ernie wrap. The patient was then transferred back to their hospital bed. There were awakened by department of anesthesia having tolerated the procedure very well with no complications. The patient was then transported to the postoperative care unit in stable condition.
[2024-02-07] MEDS: HYDROmorphone 0.5 MG/0.5 ML SYRINGE IVP PRN (17:48)
[2024-02-07] MEDS: LACTATED RINGERS 1,000 ML IV SCH (18:40)
--- NOTE | 2024-02-08 08:27 | P.PN ---
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 On today's evaluation that is 02/07/2024, Patient is afebrile this morning patient denies having any chest pain shortness of breath or cough, the patient is breathing comfortably and currently on room air, patient denies any abdominal pain no diarrhea no nausea no vomiting pain and swelling to the left upper extremity slightly decreased in intensity. Patient white count is 7.06 noticed to have slight elevated ALT and AST blood cultures are pending Objective - Vital Signs Vital signs: Vital Signs Temp 97.9 F 02/07/24 07:36 Pulse 83 02/07/24 07:36 Resp 13 02/07/24 07:36 BP 123/85 02/07/24 07:36 Pulse Ox 100 02/07/24 07:36 FiO2 Intake & Output 02/06/24 02/07/24 02/07/24 18:59 06:59 18:59 Intake Total 236 0 Balance 236 0 Intake: Oral 236 0 Other: Voiding Method Toilet # Voids 4 1 # Bowel Movements 1 - Exam GENERAL DESCRIPTION: An elderly male lying in bed in no distress RESPIRATORY SYSTEM: Unlabored breathing , decreased breath sounds at bases HEART: S1 S2 regular rate and rhythm , ABDOMEN: Soft , no tenderness EXTREMITIES: Left hand forearm swelling redness slightly decreased no drainage - Labs CBC & Chem 7: 02/07/24 02:54 02/07/24 02:54 Labs: Abnormal Lab Results - Last 24 Hours (Table) 02/07/24 Range/Units 02:54 Carbon Dioxide 19.4 L (21.6-31.8) mmol/L Glucose 115 H (70-110) mg/dL AST 85 H (14-35) U/L ALT 88 H (10-49) U/L Alkaline Phosphatase 135 H (41-126) U/L Albumin/Globulin Ratio 1.58 L (1.60-3.17) Ratio Microbiology - Last 24 Hours (Table) 02/04/24 15:08 Blood Culture - Preliminary Blood 02/05/24 14:58 Blood Culture - Preliminary Blood Assessment and Plan (1) Left arm cellulitis Current Visit: Yes Status: Acute Code(s): L03.114 - CELLULITIS OF LEFT UPPER LIMB SNOMED Code(s): 76094646281149955 (2) Cat bite of left hand Current Visit: Yes Status: Acute Code(s): S61.452A - OPEN BITE OF LEFT HAND, INITIAL ENCOUNTER; W55.01XA - BITTEN BY CAT, INITIAL ENCOUNTER SNOMED Code(s): 472706613 (3) Cellulitis of left hand Current Visit: Yes Status: Acute Code(s): L03.114 - CELLULITIS OF LEFT UPPER LIMB SNOMED Code(s): 94287148871233658 (4) Failure of outpatient treatment Current Visit: Yes Status: Acute Code(s): Z78.9 - OTHER SPECIFIED HEALTH STATUS SNOMED Code(s): 905771013 Plan: 1patient presented hospital with a left hand and forearm cellulitis from a cat bite that happened 2 days before the patient was brought into the hospital and need to cover for the polymicrobial kaia of the Mouth including Pasteurella keeping in mind abnormality seen on the x-rays will need to be treated for possible deep infection rather than superficial cellulitis, Ortho is following the patient and may take the patient for a surgical I&D today 2patient to continue with Unasyn 3 g every 6 hours , noticed to have mild elevation of LFTs we will repeat his liver function tests with a.m. labs discussed with ELECTRIC MOTOR REPAIRING SUPERVISOR for admitting team Dictation was produced using [employer] dictation software. please excuse any grammatical, word or spelling errors. Time with Patient: Less than 30
[2024-02-08 08:50] LABS: HCT 37.9 % (39.6-50.0); HGB 12.5 g/dL (13.0-17.0); MCH 29.2 pg (27.0-32.0); MCV 88.6 FL (80.0-97.0); Mean Platelet Volume 10.9 FL (9.5-12.2); NRBC Per 100 WBC 0 X 10*3/uL (0.00-0.01); Platelet Count 279 X 10*3/uL (140-440); RBC 4.28 X 10*6/uL (4.40-5.60); RDW 13.4 % (11.5-14.5); WBC 6.58 X 10*3/uL (4.50-10.00)
[2024-02-08 09:38] LABS: GGT 53 U/L (0-73); Magnesium 2.1 mg/dL (1.5-2.4)
[2024-02-08 09:43] LABS: ALT 64 U/L (10-49); AST 36 U/L (14-35); Albumin 3.6 g/dL (3.8-4.9); Albumin/Globulin Ratio 1.64 Ratio (1.60-3.17); Alkaline Phosphatase 127 U/L (41-126); BUN/Creat Ratio 14.73 Ratio (12.00-20.00); Blood Urea Nitrogen 16.2 mg/dL (9.0-27.0); Calcium 8.8 mg/dL (8.7-10.3); Carbon Dioxide 20.4 mmol/L (21.6-31.8); Chloride 110 mmol/L (96-109); Globulin 2.2 g/dL (1.6-3.3); Glucose 102 mg/dL (70-110); Potassium 4.4 mmol/L (3.5-5.5); Sodium 141 mmol/L (135-145); Total Bilirubin 0.3 mg/dL (0.3-1.2); Total Protein 5.8 g/dL (6.2-8.2)
--- NOTE | 2024-02-08 11:32 | P.PN ---
Subjective Progress Note Date: 02/08/24 Principal diagnosis: Cat bite with cellulitis left hand Patient seen and examined this morning. Patient is resting comfortably in bed. He does report some tenderness to the left hand around the surgical incision. Dressing to the left hand is clean dry and intact. Patient denies any numbness or tingling. We are awaiting wound cultures and recommendations from Dr. Joseph to follow. Dressing may be changed tomorrow or prior to discharge with removal of the [place] drain. New dressing of gauze and blane wrap can be reapplied. Patient may begin Hibiclens soaks for 20 minutes x4/day for 1 week. Patient is cleared from a orthopedic standpoint for discharge when medically cleared. Objective - Vital Signs Vital signs: Vital Signs Temp 97.6 F 02/08/24 07:16 Pulse 81 02/08/24 07:16 Resp 14 02/08/24 07:16 BP 133/74 02/08/24 07:16 Pulse Ox 98 02/08/24 07:16 FiO2 Intake & Output 02/07/24 02/08/24 02/08/24 18:59 06:59 18:59 Intake Total 300 0 Output Total 5 Balance 295 0 Intake: IV 300 Oral 0 0 Output: Estimated Blood Loss 5 Other: Voiding Method Toilet # Voids 2 - Exam Inspection: Surgical incision to the dorsal right hand, radha drain present within incision. Dressing CDI. Sensation: Sensation is equal, symmetric, bilaterally intact throughout the upper extremities Palpation: Tenderness to palpation of the right hand due to surgical procedure Range of motion: Limited ROM of the right wrist and fingers due to surgical pain and stiffness. Motor: 5/5 in all major motor groups in the bilateral upper and lower extremities Special tests: Negative Homans bilaterally. Negative Kim bilaterally. Negative clonus bilaterally. Neurovascular: Radial pulse intact, 2+ bilaterally. Cap refill under 3 seconds in digits upper extremities. - Labs CBC & Chem 7: 02/08/24 04:28 02/08/24 04:28 Labs: Abnormal Lab Results - Last 24 Hours (Table) 02/08/24 Range/Units 04:28 RBC 4.28 L (4.40-5.60) X 10*6/uL Hgb 12.5 L (13.0-17.0) g/dL Hct 37.9 L (39.6-50.0) % Microbiology - Last 24 Hours (Table) 02/04/24 15:08 Blood Culture - Preliminary Blood 02/05/24 14:58 Blood Culture - Preliminary Blood Assessment and Plan Assessment: Postop Day 1: Irrigation and debridement of the right hand wound Plan: -Appreciate spa consultant and team management. -Awaiting wound cultures, recommendations from Dr. Joseph to follow -Activity: as tolerated. -Pain control: Adequate at this time -Hygiene: Dressing to be changed prior to discharge or tomorrow 02/09/24. [place] drain located within incision is to be removed during this time. Patient may begin hibiclen soaks 20m, x4/day -Encourage IS 10x/hr -Dispo: Patient is cleared from orthopedic standpoint for discharge when medically stable. He may follow-up in our office in 2 weeks. Instructions will be placed in discharge plan. *I reviewed and discussed this case with my attending Dr. Morris, whom has reviewed this chart and films and is in agreement with assessment and plan of care as outlined above. I have personally seen and examined the patient, performed the documentation and the assessment and plan as written. Number of minutes spent on the visit: 20m.
--- NOTE | 2024-02-08 14:39 | P.PN ---
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 On today's evaluation that is 02/08/2024,the patient denies any fever or any chills, patient is breathing comfortably on room air, the patient denies chest pain shortness of breath and no significant cough, patient denies abdominal pain, no nausea vomiting or diarrhea. Pain to the left hand is currently controlled. Patient white count 6.58 creatinine 1.1 liver enzymes are improving Objective - Vital Signs Vital signs: Vital Signs Temp 97.6 F 02/08/24 07:16 Pulse 81 02/08/24 07:16 Resp 14 02/08/24 07:16 BP 133/74 02/08/24 07:16 Pulse Ox 98 02/08/24 07:16 FiO2 Intake & Output 02/07/24 02/08/24 02/08/24 18:59 06:59 18:59 Intake Total 300 0 Output Total 5 Balance 295 0 Intake: IV 300 Oral 0 0 Output: Estimated Blood Loss 5 Other: Voiding Method Toilet # Voids 2 - Exam GENERAL DESCRIPTION: An elderly male lying in bed in no distress RESPIRATORY SYSTEM: Unlabored breathing , decreased breath sounds at bases HEART: S1 S2 regular rate and rhythm , ABDOMEN: Soft , no tenderness EXTREMITIES: Left hand currently dressed no drainage - Labs CBC & Chem 7: 02/08/24 04:28 02/08/24 04:28 Labs: Abnormal Lab Results - Last 24 Hours (Table) 02/08/24 02/08/24 Range/Units 04:28 04:28 RBC 4.28 L (4.40-5.60) X 10*6/uL Hgb 12.5 L (13.0-17.0) g/dL Hct 37.9 L (39.6-50.0) % Chloride 110 H (96-109) mmol/L Carbon Dioxide 20.4 L (21.6-31.8) mmol/L AST 36 H (14-35) U/L ALT 64 H (10-49) U/L Alkaline Phosphatase 127 H (41-126) U/L C-Reactive Protein 2.00 H (0.00-0.80) mg/dL Total Protein 5.8 L (6.2-8.2) g/dL Albumin 3.6 L (3.8-4.9) g/dL Microbiology - Last 24 Hours (Table) 02/04/24 15:08 Blood Culture - Preliminary Blood 02/05/24 14:58 Blood Culture - Preliminary Blood Assessment and Plan (1) Left arm cellulitis Current Visit: Yes Status: Acute Code(s): L03.114 - CELLULITIS OF LEFT UPPER LIMB SNOMED Code(s): 40183377074152648 (2) Cat bite of left hand Current Visit: Yes Status: Acute Code(s): S61.452A - OPEN BITE OF LEFT HAND, INITIAL ENCOUNTER; W55.01XA - BITTEN BY CAT, INITIAL ENCOUNTER SNOMED Code(s): 674108659 (3) Cellulitis of left hand Current Visit: Yes Status: Acute Code(s): L03.114 - CELLULITIS OF LEFT UPPER LIMB SNOMED Code(s): 00899795686481293 (4) Failure of outpatient treatment Current Visit: Yes Status: Acute Code(s): Z78.9 - OTHER SPECIFIED HEALTH STATUS SNOMED Code(s): 567091091 Plan: 1patient presented hospital with a left hand and forearm cellulitis from a cat bite that happened 2 days before the patient was brought into the hospital and need to cover for the polymicrobial kaia of the Mouth including Pasteurella keeping in mind abnormality seen on the x-rays will need to be treated for possible deep infection rather than superficial cellulitis, Ortho is following the patient and may take the patient for a surgical I&D today 2patient is status post surgical drainage of the abscess we will wait for the culture to finalize continue with Unasyn patient liver enzymes are improving Dictation was produced using [employer] dictation software. please excuse any gr ammatical, word or spelling errors. Time with Patient: Less than 30
[2024-02-08 14:46] VITALS: RESP 16
--- NOTE | 2024-02-08 17:02 | P.PN ---
Subjective Progress Note Date: 02/08/24 Hospital course: Patient is a very pleasant 78-year-old male with a past medical history of CAD status post stenting, hypertension, hyperlipidemia, and GERD. He presented to the emergency department on 02/04/2024 with a chief complaint of left hand swelling and redness status post cat bite 3 days prior. Patient reports cat is his pet and is up-to-date on all vaccinations including rabies. Patient was evaluated at urgent care and given a tetanus shot and started on oral Augmentin at time of the event but experienced progressively worsening left hand pain, s welling, and decreased range of motion so he came to the emergency department for evaluation. Upon arrival to our facility, patient underwent evaluation in the emergency department. Vital signs upon arrival revealed blood pressure 136/72, heart rate 76, respiratory rate 18, temp 97.4 F, and SpO2 of 100% on room air. Labs completed and reviewed. CBC showing mild leukocytosis with WBC count of 11.1. BMP showing non-anion gap metabolic acidosis with chloride of 109, bicarb of 20, and anion gap of 10 with prerenal azotemia with BUN of 21. Blood glucose 119. Liver profile showing mild hyperbilirubinemia with total bili of 1.4 otherwise normal findings. CRP was elevated at 5.6. 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 Patient was admitted under services with consultation to orthopedic surgery team. Physical exam: Patient was seen and fully evaluated at bedside. Patient is postoperative I&D day 1. [place] drain and dressing in place with Ernie wrap. Patient reports mild to moderate pain but states improvement from yesterday with improved range of motion of left hand. Denies having any other complaints or concerns at this time. Vital signs reviewed and stable. General: Nontoxic, no distress and appears stated age. Derm: Skin warm and dry, normal coloration for ethnicity. Posterior left hand moderate swelling and minimal erythema, 2 puncture/bite wounds noted with no active drainage. Head: Atraumatic, normocephalic and symmetric. Eyes: EOM's intact, no lid lag, and anicteric sclera Mouth: no lip lesions, mucus membranes moist Cardiovascular: regular rate and rhythm with normal S1S2, no murmur, positive posterior tibial pulses bilaterally, and cap refill < 2 seconds. Lungs: Respirations even, regular, and unlabored on room air. Lungs CTA bilaterally, no rhonchi, no rales, no wheezing, and no accessory muscle usage. Abdominal: soft, nontender to palpation, no guarding, no appreciable organom egaly Ext: No gross muscle atrophy, no edema, no contractures. Movement and sensation intact. Postoperative dressing and Ernie wrap in place to left hand and distal arm. Neuro: Speech clear, face symmetrical and CN II-XII grossly intact with no noted focal neuro deficits Psych: Alert and oriented to person, place, time, and situation. Appropriate and pleasant affect. Assessment and Plan of Care: Cat bite with surrounding cellulitis of left hand -Continue IV antibiotics with Unasyn 3 g every 6 hours. -Blood Cultures showing no growth to date. -Infectious disease following, reviewed documentation in chart. -Patient received tetanus shot outpatient at urgent care prior to arrival to our facility. -Orthopedic surgery following, patient for incision and drainage with irrigation and debridement of left hand with Dr. Morris on 02/07/2024. Recommending changing dressing tomorrow morning and removing [place] drain and clearing patient from orthopedic surgery perspective for discharge. -Continue symptomatic care and pain management with Tylenol 650 mg p.o. every 6 hours as needed for mild pain/fever, [place] 5/325 mg tablets every 4 hours as needed for moderate pain and morphine 4 mg IVP every 4 hours as needed for severe pain. Transaminitis, unclear etiology -Improving. CAD status post stenting Hypertension Hyperlipidemia Continue daily medication regimen with aspirin 81 mg daily, atorvastatin 20 mg nightly, Plavix 75 mg daily,and metoprolol 25 mg twice daily. Data and imaging reviewed: Vital signs reviewed. Blood pressure 133/74, heart rate 81, respiratory rate 14, temp 97.6 F, and SpO2 of 98% on room air Labs completed and reviewed. Blood cultures showing no growth to date. CBC showing normocytic anemia with hemoglobin of 12.5. BMP showing non-anion gap metabolic acidosis with chloride of 110, bicarb 20.4, and anion gap of 10.60. Magnesium 2.1. CRP improving from 5.8 down to 2.0 this morning. Liver profile also improving with AST of 36, ALT of 64, and alk phos of 127. GGT was 53. CODE STATUS: Full Code DVT prophylaxis: SCDs Anticipated discharge date: Likely tomorrow morning Anticipated discharge place: Home Patient was seen independently by Nurse Pracitioner. This document was prepared using [employer] dictation software. Please allow for errors in dianetic counselor, while rare they do occur. I reviewed the documentation as provided by the KELVIN above, who is the original author of this note. I agree with the documented assessment and plan, with the following changes: none Objective - Vital Signs Vital signs: Vital Signs Temp 97.6 F 02/08/24 07:16 Pulse 81 02/08/24 07:16 Resp 14 02/08/24 07:16 BP 133/74 02/08/24 07:16 Pulse Ox 98 02/08/24 07:16 FiO2 Intake & Output 02/07/24 02/08/24 02/08/24 18:59 06:59 18:59 Intake Total 300 0 Output Total 5 Balance 295 0 Intake: IV 300 Oral 0 0 Output: Estimated Blood Loss 5 Other: Voiding Method Toilet # Voids 2 - Labs CBC & Chem 7: 02/08/24 04:28 02/08/24 04:28 Labs: Abnormal Lab Results - Last 24 Hours (Table) 02/08/24 Range/Units 04:28 RBC 4.28 L (4.40-5.60) X 10*6/uL Hgb 12.5 L (13.0-17.0) g/dL Hct 37.9 L (39.6-50.0) % Microbiology - Last 24 Hours (Table) 02/04/24 15:08 Blood Culture - Preliminary Blood 02/05/24 14:58 Blood Culture - Preliminary Blood
[2024-02-09] MEDS: ACETAMINOPHEN TAB 325 MG TAB PO PRN (09:33)
--- NOTE | 2024-02-09 12:52 | P.PN ---
Subjective Progress Note Date: 02/09/24 Hospital course: Patient is a very pleasant 78-year-old male with a past medical history of CAD status post stenting, hypertension, hyperlipidemia, and GERD. He presented to the emergency department on 02/04/2024 with a chief complaint of left hand swelling and redness status post cat bite 3 days prior. Patient reports cat is his pet and is up-to-date on all vaccinations including rabies. Patient was evaluated at urgent care and given a tetanus shot and started on oral Augmentin at time of the event but experienced progressively worsening left hand pain, s welling, and decreased range of motion so he came to the emergency department for evaluation. Upon arrival to our facility, patient underwent evaluation in the emergency department. Vital signs upon arrival revealed blood pressure 136/72, heart rate 76, respiratory rate 18, temp 97.4 F, and SpO2 of 100% on room air. Labs completed and reviewed. CBC showing mild leukocytosis with WBC count of 11.1. BMP showing non-anion gap metabolic acidosis with chloride of 109, bicarb of 20, and anion gap of 10 with prerenal azotemia with BUN of 21. Blood glucose 119. Liver profile showing mild hyperbilirubinemia with total bili of 1.4 otherwise normal findings. CRP was elevated at 5.6. 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 Patient was admitted under services with consultation to orthopedic surgery team. Physical exam: Patient was seen and fully evaluated at bedside. Patient is postoperative I&D day 2.. [place] drain and dressing in place with Ernie wrap. Patient reports he continues to have mild to moderate pain in left hand and slightly decreased range of motion as he is still unable to make a fist. Denies having any other complaints, questions or concerns at this time. Vital signs reviewed and stable. General: Nontoxic, no distress and appears stated age. Derm: Skin warm and dry, normal coloration for ethnicity. Posterior left hand moderate swelling and minimal erythema, 2 puncture/bite wounds noted with no active drainage. Head: Atraumatic, normocephalic and symmetric. Eyes: EOM's intact, no lid lag, and anicteric sclera Mouth: no lip lesions, mucus membranes moist Cardiovascular: regular rate and rhythm with normal S1S2, no murmur, positive posterior tibial pulses bilaterally, and cap refill < 2 seconds. Lungs: Respirations even, regular, and unlabored on room air. Lungs CTA bilaterally, no rhonchi, no rales, no wheezing, and no accessory muscle usage. Abdominal: soft, nontender to palpation, no guarding, no appreciable organomegaly Ext: No gross muscle atrophy, no edema, no contractures. Movement and sensation intact. Postoperative dressing and Ernie wrap in place to left hand and distal arm. Neuro: Speech clear, face symmetrical and CN II-XII grossly intact with no noted focal neuro deficits Psych: Alert and oriented to person, place, time, and situation. Appropriate and pleasant affect. Assessment and Plan of Care: Cat bite with surrounding cellulitis of left hand -Continue IV antibiotics with Unasyn 3 g every 6 hours. -Blood Cultures showing no growth to date. -Preliminary wound culture results showing Gram stain with moderate polymorphonucl and awaiting further recommendations. Ear leukocytes with no organisms seen and anaerobic culture showing no growth after 24 hours. -Infectious disease following, recommending continuation of Unasyn 3 g every 6 hours -Patient received tetanus shot outpatient at urgent care prior to arrival to our facility. -Orthopedic surgery following, patient for incision and drainage with irrigation and debridement of left hand with Dr. Morris on 02/07/2024. Recommending changing dressing and removing [place] drain prior to discharge and clearing patient from orthopedic surgery perspective for discharge. -Continue symptomatic care and pain management with Tylenol 650 mg p.o. every 6 hours as needed for mild pain/fever, [place] 5/325 mg tablets every 4 hours as needed for moderate pain and morphine 4 mg IVP every 4 hours as needed for severe pain. Transaminitis, unclear etiology -Improving. CAD status post stenting Hypertension Hyperlipidemia Continue daily medication regimen with aspirin 81 mg daily, atorvastatin 20 mg nightly, Plavix 75 mg daily,and metoprolol 25 mg twice daily. Data and imaging reviewed: Vital signs reviewed. Blood pressure 129/76, heart rate 89, respiratory rate 16, temp 98.1 F, and SpO2 of 98% on room air. Labs completed and reviewed. Blood cultures showing no growth to date. CBC showing normocytic anemia with hemoglobin of 12.5. BMP showing non-anion gap metabolic acidosis with chloride of 110, bicarb 20.4, and anion gap of 10.60. Magnesium 2.1. CRP improving from 5.8 down to 2.0 this morning. Liver profile also improving with AST of 36, ALT of 64, and alk phos of 127. GGT was 53. CODE STATUS: Full Code DVT prophylaxis: SCDs Anticipated discharge date: Likely within the next 24 hours pending further recommendations/clearance from infectious disease. Anticipated discharge place: Home Patient was seen independently by Nurse Pracitioner. This document was prepared using Pic[employer] dictation software. Please allow for errors in application support lead, while rare they do occur. I reviewed the documentation as provided by the KELVIN above, who is the original author of this note. I agree with the documented assessment and plan, with the following changes: none Objective - Vital Signs Vital signs: Vital Signs Temp 98.1 F 02/09/24 07:56 Pulse 89 02/09/24 07:56 Resp 16 02/09/24 07:56 BP 129/76 02/09/24 07:56 Pulse Ox 98 02/09/24 07:56 FiO2 Intake & Output 02/08/24 02/09/24 02/09/24 18:59 06:59 18:59 Intake Total 118 Balance 118 Intake: Oral 118 Other: # Voids 3 3 - Labs CBC & Chem 7: 02/08/24 04:28 02/08/24 04:28 Labs: Abnormal Lab Results - Last 24 Hours (Table) 02/08/24 Range/Units 04:28 Chloride 110 H (96-109) mmol/L Carbon Dioxide 20.4 L (21.6-31.8) mmol/L AST 36 H (14-35) U/L ALT 64 H (10-49) U/L Alkaline Phosphatase 127 H (41-126) U/L C-Reactive Protein 2.00 H (0.00-0.80) mg/dL Total Protein 5.8 L (6.2-8.2) g/dL Albumin 3.6 L (3.8-4.9) g/dL Microbiology - Last 24 Hours (Table) 02/07/24 17:00 Gram Stain - Preliminary Hand - Left 02/05/24 14:58 Blood Culture - Preliminary Blood
--- NOTE | 2024-02-09 14:47 | P.PN ---
Subjective Progress Note Date: 02/09/24 Principal diagnosis: Left hand forearm cat bite cellulitis Patient is a 78-year-old male with a past medical history significant for hypertension hyperlipidemia reflux SD presenting to the ER for evaluation of left hand and forearm cat bite that apparently happened 2 days before presentation to the hospital and seem to have failed outpatient oral antibiotic therapy patient did have erosive arthritis of the DIP joint of the fifth digit.Patient is status post drainage of the left hand dorsal abscess by orthopedics cultures obtained on 02/07/2024. On today's evaluation that is 02/09/2024,the patient remains to be afebrile, patient is on room air not requiring supplemental oxygen and denies any shortness of breath no chest pain or cough.Patient denies having any nausea or vomiting, no abdominal pain and no diarrhea has been reported pain to the left hand has decreased in intensity. Patient did have a lab draw today and cultures are pending Objective - Vital Signs Vital signs: Vital Signs Temp 98.1 F 02/09/24 07:56 Pulse 89 02/09/24 07:56 Resp 16 02/09/24 07:56 BP 129/76 02/09/24 07:56 Pulse Ox 98 02/09/24 07:56 FiO2 Intake & Output 02/08/24 02/09/24 02/09/24 18:59 06:59 18:59 Intake Total 118 Balance 118 Intake: Oral 118 Other: # Voids 3 3 - Exam GENERAL DESCRIPTION: An elderly male lying in bed in no distress RESPIRATORY SYSTEM: Unlabored breathing , decreased breath sounds at bases HEART: S1 S2 regular rate and rhythm , ABDOMEN: Soft , no tenderness EXTREMITIES: Left hand currently dressed no drainage - Labs CBC & Chem 7: 02/08/24 04:28 02/08/24 04:28 Labs: Microbiology - Last 24 Hours (Table) 02/07/24 17:00 Gram Stain - Preliminary Hand - Left Wound Culture - Preliminary 02/05/24 14:58 Blood Culture - Preliminary Blood Assessment and Plan (1) Left arm cellulitis Current Visit: Yes Status: Acute Code(s): L03.114 - CELLULITIS OF LEFT UPPER LIMB SNOMED Code(s): 86971596295330161 (2) Cat bite of left hand Current Visit: Yes Status: Acute Code(s): S61.452A - OPEN BITE OF LEFT HAND, INITIAL ENCOUNTER; W55.01XA - BITTEN BY CAT, INITIAL ENCOUNTER SNOMED Code(s): 167951146 (3) Cellulitis of left hand Current Visit: Yes Status: Acute Code(s): L03.114 - CELLULITIS OF LEFT UPPER LIMB SNOMED Code(s): 49786282870536477 (4) Failure of outpatient treatment Current Visit: Yes Status: Acute Code(s): Z78.9 - OTHER SPECIFIED HEALTH STATUS SNOMED Code(s): 790357447 Plan: 1patient presented hospital with a left hand and forearm cellulitis from a cat bite that happened 2 days before the patient was brought into the hospital and need to cover for the polymicrobial kaia of the Mouth including Pasteurella keeping in mind abnormality seen on the x-rays will need to be treated for possible deep infection rather than superficial cellulitis, Ortho is following the patient and may take the patient for a surgical I&D today 2patient is status post surgical drainage of the abscess we will wait for the culture to finalize to determine discharge antibiotics patient is currently covered with Unasyn to continue at the bedside questions were answered Dictation was produced using [employer] dictation software. please excuse any grammatical, word or spelling errors. Time with Patient: Less than 30
[2024-02-09 14:58] VITALS: BP 142/75; PULSE 75; TEMP 98.3
--- NOTE | 2024-02-09 15:23 | P.DS ---
Providers Date of admission: 02/04/24 14:54 Expected date of discharge: 02/09/24 Attending physician: Eduardo Das MD Consults: 02/04/24 14:12 Consult Physician Urgent Consulting Provider: Abdias Morris Consult Reason/Comments: cellulitis left hand Do you want consulting provider notified?: Yes 02/04/24 17:34 Consult Physician Routine Consulting Provider: Courtney Joseph Consult Reason/Comments: cellulitis, antibiotic management Do you want consulting provider notified?: Yes [facility]: Discharge Diagnosis: Cat bite with surrounding cellulitis of left hand. Patient was hospitalized and placed on IV antibiotics. He was evaluated by orthopedic surgery and infectious disease. Patient underwent incision and drainage with irrigation and debridement of left hand with Shari on 02/07/2024. Patient tolerated procedure well. Blood culture showing no growth to date. Preliminary wound culture results showing Gram stain with moderate polymorphonuclear leukocytes with no organisms seen and anaerobic culture showing no growth after 24 hours. Patient cleared from orthopedic surgery team and medically cleared for discharge at this time. Discussed with CHERYL White drain to be removed prior to discharge with new dressing placed. Patient discharged home on Augmentin 875/125 mg tablets every 12 hours x 10 days. Patient to follow-up outpatient with PCP in 1 to 2 days and with infectious disease and orthopedic surgery in 1 week. Transaminitis, unclear etiology. Improved CAD status post stenting. Continue daily medication regimen with aspirin 81 mg daily, atorvastatin 20 mg nightly, Plavix 75 mg daily,and metoprolol 25 mg twice daily. Hypertension. Continue daily medication regimen with metoprolol 25 mg twice daily. Hyperlipidemia. Continue daily medication regimen with atorvastatin 20 mg nightly. Hospital course: Patient is a very pleasant 78-year-old male with a past medical history of CAD status post stenting, hypertension, hyperlipidemia, and GERD. He presented to the emergency department on 02/04/2024 with a chief complaint of left hand swelling and redness status post cat bite 3 days prior. Patient reports cat is his pet and is up-to-date on all vaccinations including rabies. Patient was evaluated at urgent care and given a tetanus shot and started on oral Augmentin at time of the event but experienced progressively worsening left hand pain, swelling, and decreased range of motion so he came to the emergency department for evaluation. Upon arrival to our facility, patient underwent evaluation in the emergency department. Vital signs upon arrival revealed blood pressure 136/72, heart rate 76, respiratory rate 18, temp 97.4 F, and SpO2 of 100% on room air. Labs completed and reviewed. CBC showing mild leukocytosis with WBC count of 11.1. BMP showing non-anion gap metabolic acidosis with chloride of 109, bicarb of 20, and anion gap of 10 with prerenal azotemia with BUN of 21. Blood glucose 119. Liver profile showing mild hyperbilirubinemia with total bili of 1.4 otherwise normal findings. CRP was elevated at 5.6. 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 Patient was admitted under services with consultation to orthopedic surgery team and infectious disease. Patient was hospitalized and placed on IV antibiotics. He was evaluated by orthopedic surgery and infectious disease. Patient underwent incision and drainage with irrigation and debridement of left hand with Shari on 02/07/2024. Patient tolerated procedure well. Blood culture showing no growth to date. Preliminary wound culture results showing Gram stain with moderate polymorphonuclear leukocytes with no organisms seen and anaerobic culture showing no growth after 24 hours. Patient cleared from orthopedic surgery team and medically cleared for discharge at this time. Discussed with CHERYL White drain to be removed prior to discharge with new dressing placed. Patient discharged home on Augmentin 875/125 mg tablets every 12 hours x 10 days. Patient to follow-up outpatient with PCP in 1 to 2 days and with infectious disease and orthopedic surgery in 1 week. Physical exam: Vital signs reviewed and stable. General: Nontoxic, no distress and appears stated age. Derm: Skin warm and dry, normal coloration for ethnicity. Posterior left hand moderate swelling and minimal erythema, 2 puncture/bite wounds noted with no active drainage. Head: Atraumatic, normocephalic and symmetric. Eyes: EOM's intact, no lid lag, and anicteric sclera Mouth: no lip lesions, mucus membranes moist Cardiovascular: regular rate and rhythm with normal S1S2, no murmur, positive posterior tibial pulses bilaterally, and cap refill < 2 seconds. Lungs: Respirations even, regular, and unlabored on room air. Lungs CTA bilaterally, no rhonchi, no rales, no wheezing, and no accessory muscle usage. Abdominal: soft, nontender to palpation, no guarding, no appreciable organomegaly Ext: No gross muscle atrophy, no edema, no contractures. Movement and sensation intact. Postoperative dressing and Ernie wrap in place to left hand and distal arm. Neuro: Speech clear, face symmetrical and CN II-XII grossly intact with no noted focal neuro deficits Psych: Alert and oriented to person, place, time, and situation. Appropriate and pleasant affect. A total of 34 minutes of time were spent preparing this complex discharge summary. Pt was discharged on 02/09/2024 at 3:21 PM Patient was seen independently by Nurse Practitioner. This document was prepared using [employer]í dictation software. Please allow for errors in sybase developer while rare they do occur. I reviewed the documentation as provided by the KELVIN above, who is the original author of this note. I agree with the documented assessment and plan, with the following changes: none Patient Condition at Discharge: Stable Plan - Discharge Summary Discharge Rx Participant: No New Discharge Prescriptions: New HYDROcodone/APAP 5-325MG [[place] 5-325] 1 each PO Q4HR PRN #18 tab PRN Reason: Moderate Pain (Scale 4 To 6) Continue Topiramate [Topamax] 25 mg PO DAILY Metoprolol Tartrate [Lopressor] 25 mg PO BID Famotidine [Pepcid] 20 mg PO DAILY Clopidogrel [Plavix] 75 mg PO DAILY Atorvastatin [Lipitor] 20 mg PO HS Aspirin EC [Ecotrin Low Dose] 81 mg PO DAILY Amoxic-Pot Clav 875-125Mg [Augmentin 875-125] 1 tab PO Q12HR 10 Days #20 tab Discharge Medication List Aspirin EC [Ecotrin Low Dose] 81 mg PO DAILY 08/04/19 [History] Atorvastatin [Lipitor] 20 mg PO HS 08/04/19 [History] Clopidogrel [Plavix] 75 mg PO DAILY 08/04/19 [History] Famotidine [Pepcid] 20 mg PO DAILY 08/04/19 [History] Metoprolol Tartrate [Lopressor] 25 mg PO BID 08/04/19 [History] Topiramate [Topamax] 25 mg PO DAILY 08/04/19 [History] Amoxic-Pot Clav 875-125Mg [Augmentin 875-125] 1 tab PO Q12HR 10 Days #20 tab 02/09/24 [Rx] HYDROcodone/APAP 5-325MG [[place] 5-325] 1 each PO Q4HR PRN #18 tab 02/09/24 [Rx] Follow up Appointment(s)/Referral(s): [facility], [NON-STAFF] - As Needed Paul Chisholm DO [Primary Care Provider] - 1-2 days [facility] [NON-STAFF] - As Needed [facility], [REFERRING] - As Needed Abdias Morris DO [Doctor of Osteopathic Medicine] - 10 Days Courtney Joseph MD [STAFF PHYSICIAN] - 1 Week Patient Instructions/Handouts: Animal Bite (DC) Activity/Diet/Wound Care/Special Instructions: Orthopedic discharge instructions: 1. Hibiclens soaks 4 times a day for 1 week 2. Keep incision covered with basic bandage 2. Avoid excess use of the extremity 3. Plan for follow-up at [facility] in 10 days, please contact office for follow-up. [phone] Discharge Disposition: HOME WITH HOME HEALTH SERVICES
== END 2024-02-09 16:18 | disposition home health service (06) | DRG 603 ==
LOC: EC 09:49 → 4SSUR 14:54 → 6NMEDSUR 15:17
PROVIDERS: ADMIT Student in an Organized Health Care Education/Training Program; ATTEND Student in an Organized Health Care Education/Training Program
PROC: 0H9 Skin and Breast, Drainage (ICD-10-PCS; principal; 2024-02-07 13:10)
DX: L03.114 Cellulitis of left upper limb (principal); E87.20 Acidosis, unspecified; L02.512 Cutaneous abscess of left hand; I10 Essential (primary) hypertension; S61.452A Open bite of left hand, initial encounter; M15.4 Erosive (osteo)arthritis; M19.042 Primary osteoarthritis, left hand; K21.9 Gastro-esophageal reflux disease without esophagitis; I25.10 Atherosclerotic heart disease of native coronary artery without angina pectoris; E78.5 Hyperlipidemia, unspecified; R74.01 Elevation of levels of liver transaminase levels; W55.01XA Bitten by cat, initial encounter; I25.2 Old myocardial infarction; Z79.82 Long term (current) use of aspirin; Z79.899 Other long term (current) drug therapy; Z79.02 Long term (current) use of antithrombotics/antiplatelets; Z95.5 Presence of coronary angioplasty implant and graft
CPT/HCPCS: 36415; 80048; 80053; 82977; 83735; 85025; 85027; 86140; 87040; 87070; 87075; 87102; 87205; 96365; 96366; 99285